=== PATIENT | female | born 1960 | race American Indian/Alaskan Native ===

== ENCOUNTER 2017-08-11 08:47 | Day surgery (SDC) | payer MEDICARE ==
[2017-08-06 10:11] VITALS: BMI 32.3
[2017-08-11 09:35] LABS: POTASSIUM 3.4 mmol/L (3.6-5.2)
[2017-08-11] MEDS ORDERED: Propofol 10 mg/ml Inj (20 ML) ONE ×2 (10:04→11:07)
[2017-08-11] MEDS ORDERED: Midazolam 2 MG/2 ML VIAL ONE (10:05)
[2017-08-11] MEDS ORDERED: ceFAZolin IV 1 gm in Dextrose 1 GM/50 ML BAG IVPB ONE (10:43)
[2017-08-11] MEDS ORDERED: HEPARIN-NS 5,000 UNITS/500 ML 5,000 UNIT/500 ML BAG IV ONE (10:44)
[2017-08-11] MEDS ORDERED: Lidocaine 1% Inj (20ml) ONE (10:44)
[2017-08-11] MEDS ORDERED: Sodium Chloride 0.9% 500 ML IV ONE (10:48)
[2017-08-11] MEDS ORDERED: Morphine 4 MG/ML VIAL ONE (11:05)
[2017-08-11] MEDS ORDERED: Lactated Ringer's 1,000 ML IV ONE ×2 (11:48→12:54)
[2017-08-11] MEDS ORDERED: HYDROmorphone 0.5 mg/0.5 ml ISec IVP PRN (12:32)
--- NOTE | 2017-08-11 12:55 | PCM.SURG1 ---
Surgeon's Initial Post Op Note - Surgeon's Notes Surgeon: Dr. Ruiz Primary Substance Abuse Counselor: Dr. Sheppard PGY-3, Horace S-III Type of Anesthesia: General LMA Pre-Operative Diagnosis: Renal failure requiring dialysis Operative Findings: good radial pulse Post-Operative Diagnosis: Renal failure requiring dialysis Operation Performed: Left brachiobasilic AV Fistula Specimen/Specimens Removed: none Estimated Blood Loss: EBL {In ML}: 50 Blood Products Given: N/A Drains Used: No Drains Post-Op Condition: Good Date of Surgery/Procedure: 08/11/17 Time of Surgery/Procedure: 12:55
[2017-08-11 16:10] VITALS: BP 125/80; PULSE 68; RESP 18; TEMP 98; O2SAT 98
--- NOTE | 2017-08-11 21:52 | OP ---
PROCEDURE DATE: 08/11/2017 PREOPERATIVE DIAGNOSIS: Renal failure. POSTOPERATIVE DIAGNOSIS: Renal failure. PROCEDURE CARRIED OUT: AV fistula, left elbow; brachiocephalic. SURGEON: Dr. Ruiz. MAILING SECTION CLERK: Dr. Sheppard. ANESTHESIOLOGIST: Aranza Ingram CRNA. INDICATION: The patient is a middle aged women, HIV positive with renal insufficiency on dialysis. OPERATIVE FINDINGS: As confirmed on our preoperative mapping, there were no good cephalic resurface seen. We had to do an anastomosis to the basilic vein. This most likely will require mobilization in the future. PROCEDURE: The patient was given general anesthesia, intravenous antibiotics, the area was prepped and draped with Hibiclens. The appropriate time was waited before we draped the patient and then with ultrasound we mapped out the veins that were present. Particularly, the basilic vein noted the small size in location of the cephalic vein. After this had been done, we then carried out anastomosis using loop magnification, heparin, and anticoagulation. This went quite well. At the end of the procedure there was good flow. We did have to make two separate incisions, one to mobilize the basilic vein. After this had been done, we then anastomosed everything satisfactorily. We obtained good hemostasis and closed the wounds. Blood loss of the procedure was 50 mL. Operation carried out is brachial basilic fistula left elbow. Michael Ruiz Jr., MD cc: Carlos Nava MD
== END 2017-08-11 16:14 | disposition home or self-care (01) ==
LOC: C.SDS 08:47
PROVIDERS: ATTEND Surgery Vascular Surgery
DX: N18.9 Chronic kidney disease, unspecified (principal); Z99.2 Dependence on renal dialysis; Z21 Asymptomatic human immunodeficiency virus [HIV] infection status
CPT/HCPCS: 36415; 36819; 80048; J0690; J1170; J1644; J2250; J2270; J2704; J3010; J7040; J7120

== ENCOUNTER 2017-10-15 09:19 | Day surgery (SDC) | payer MEDICARE ==
[2017-10-09 12:39] VITALS: BMI 32.5
[~2017-10-15 09:19] MED LIST: HEPARIN-NS 5,000 UNITS/500 ML 5,000 UNIT/500 ML BAG IV ONE
[2017-10-15] MEDS ORDERED: Propofol 10 mg/ml Inj (20 ML) ONE (11:00)
[2017-10-15] MEDS ORDERED: Midazolam 2 MG/2 ML VIAL ONE (11:00)
[2017-10-15] MEDS ORDERED: Sodium Chloride 0.45% 500 ML IV ONE (11:20)
[2017-10-15] MEDS ORDERED: ceFAZolin IV 2 gm in Dextrose 2 GM/50 ML BAG IVPB ONE (11:46)
[2017-10-15] MEDS ORDERED: Iohexol 240 (50 ml) ONE (13:05)
[2017-10-15] MEDS ORDERED: Sodium Chloride 0.9% 1,000 ML IV ONE (14:03)
[2017-10-15] MEDS ORDERED: Oxycodone/Acetaminophen 5/325 mg Tab PO PRN (14:04)
[2017-10-15] MEDS ORDERED: HYDROmorphone 0.5 mg/0.5 ml ISec IVP PRN (14:07)
--- NOTE | 2017-10-15 14:11 | PCM.SURG1 ---
Surgeon's Initial Post Op Note - Surgeon's Notes Surgeon: Dr. Ruiz Press Manager: Guero PGY1 Type of Anesthesia: General LMA Anesthesia Administered By: Dr. Luciano Pre-Operative Diagnosis: ESRD requiring HD Operative Findings: see operative report Post-Operative Diagnosis: ESRD requiring HD Operation Performed: LUE AVF transposition and fistulogram Specimen/Specimens Removed: N/A Estimated Blood Loss: EBL {In ML}: 20 Blood Products Given: N/A Drains Used: No Drains Post-Op Condition: Good Date of Surgery/Procedure: 10/15/17 Time of Surgery/Procedure: 11:30
[2017-10-15] MEDS ORDERED: Sodium Chloride 0.9% 1,000 ML IV SCH (14:15)
--- NOTE | 2017-10-15 15:24 | RAD ---
PROCEDURE: Intraoperative Fluoroscopy. HISTORY: RENAL FAILURE FINDINGS: Fluoroscopic assistance was provided Please refer to the operative
[2017-10-15 16:45] VITALS: RESP 16; TEMP 97.9; O2SAT 99
[2017-10-15 17:29] VITALS: BP 126/83; PULSE 94
--- NOTE | 2017-10-16 01:56 | OP ---
PROCEDURE DATE: 10/15/2017 PREOPERATIVE DIAGNOSIS: Immature fistula, left arm. POSTOPERATIVE DIAGNOSIS: Basilic vein transposition of fistula, left arm. SURGEON: Michael Ruiz Jr., MD [employer] DIVISION MANAGER: Juventino Jack DO ANESTHESIOLOGIST: Dr. Luciano. INDICATIONS: The patient is a 57-year-old woman with renal insufficiency, requiring dialysis, who had a basilic vein fistula created several months ago which has not matured. OPERATIVE FINDINGS: The vein was between approximately 6 mm in diameter. There was one central area which was slightly stenosed to approximately 5 mm and we attempted hydrostatic dilatation of this area. In addition, a completion angiogram was taken which showed arterial anastomosis because on the preoperative duplex scan it suggested there was turbulence and nani-anastomotic stenosis. There was no sign of this on the completion angiogram. DESCRIPTION OF THE PROCEDURE: The vein was marked with ultrasound. The vein was marked, dissected free from the surrounding tissues. Tributaries and branches were ligated and after this was done, it was brought to the subcutaneous position, elevated directly under the skin. The skin was closed on top of it. Blood loss for the procedure was approximately 100 mL. There were no operative complications. OPERATIONS CARRIED OUT: 1. Revision of arteriovenous fistula,creation of basilic vein transposition of fistula, left arm. 2. Intraoperative arteriogram showing arterial anastomosis. The patient did receive pre-treatment and post-treatment for the remote history of dye reaction. Michael Ruiz Jr., MD cc: MD Kenny Tomlin MD
== END 2017-10-15 17:35 | disposition home or self-care (01) ==
LOC: C.SDS 09:19
PROVIDERS: ATTEND Surgery Vascular Surgery
DX: N18.6 End stage renal disease (principal); Z99.2 Dependence on renal dialysis
CPT/HCPCS: 36819; J0690; J1170; J2250; J2704; J3010; J7030; J7040

== ENCOUNTER 2019-01-24 15:53 | Inpatient (IN) | payer MEDICARE, OTHER ==
[2019-01-24 16:51] LABS: BASO # 0.1 K/uL (0.0-0.2); BASO % 0.5 % (0.0-2.0); EOS # 0.1 K/uL (0.0-0.7); EOS % 0.7 % (0.0-4.0); HEMOGLOBIN 9.7 g/dL (11.0-16.0); LYMPH # 0.3 K/uL (1.0-4.3); LYMPH % 2.8 % (20.0-40.0); MEAN CELL VOLUME 83.5 fL (81.0-99.0); MEAN CORPUSCULAR HEMOGLOBIN 26.9 pg (27.0-31.0); MEAN CORPUSCULAR HGB CONC 32.3 g/dL (33.0-37.0); MEAN PLATELET VOLUME 7.6 fL (7.2-11.7); MONO # 0.7 K/uL (0.0-0.8); MONO % 6.5 % (0.0-10.0); NEUT # 9.6 K/uL (1.8-7.0); NEUT % 89.5 % (50.0-75.0); PLATELET COUNT 240 K/uL (130-400); RBC 3.59 Mil/uL (3.80-5.20); WHITE BLOOD COUNT 10.7 K/uL (4.8-10.8)
[2019-01-24 17:00] LABS: PROTHROMBIN TIME 10.9 SECONDS (9.7-12.2)
[2019-01-24 17:06] LABS: ALB/GLOB RATIO 1.3 (1.0-2.1); ALBUMIN 4.7 g/dL (3.5-5.0); CALCIUM 10.1 mg/dl (8.6-10.4)
--- NOTE | 2019-01-24 17:32 | RAD ---
PROCEDURE: Left Hand Radiographs. HISTORY: pain and swelling to hand worse 5th finger COMPARISON: None. TECHNIQUE: 3 views obtained. FINDINGS: BONES: Normal. No fracture. JOINTS: Normal. No osteoarthritic changes. SOFT TISSUES: Normal. OTHER FINDINGS: None. IMPRESSION: Normal left hand radiographs.
[2019-01-24] MEDS ORDERED: Oxycodone/Acetaminophen 5/325 mg Tab PO STA (17:33)
--- NOTE | 2019-01-24 17:34 | CP.PCM.CON ---
History of Present Illness - History of Present Illness History of Present Illness: Surgery: Dr. Ruiz Reason for consult: malfunctioning left arm AVF HPI: Patient is a 58 y/o female w/ pmhx of HIV and ESRD - to start HD this coming week, presents complaining of left hand swelling x2 days. She also states over the past 2-3 weeks she noticed an absence of the fistula thrill. She was told by her director loss prevention, Dr. Nava, that he plans to start HD next week twice per week. She complains of pain to the hand as well. She denies f/c/n/v. She denies loss of sensation or function in the left hand. She denies any attempt of using the AVF as of yet. PMH: HIV, ESRD, HTN, DDD, CVA w/ Left sided weakness PSH: Left arm AVF, AVF superficialization, cataracts Social: denies ETOH, tobacco or drug use Review of Systems - Constitutional Constitutional: absent: Anorexia, Chills, Fever - EENT Eyes: absent: Blurred Vision, Change in Vision Ears: absent: Dizziness Nose/Mouth/Throat: absent: Facial Pain, Neck Pain - Cardiovascular Cardiovascular: absent: Chest Pain, Edema - Respiratory Respiratory: absent: Cough, Wheezing - Gastrointestinal Gastrointestinal: absent: Abdominal Pain, Nausea - Genitourinary Genitourinary: absent: Hematuria, Pyuria - Musculoskeletal Musculoskeletal: Radiating Pain into Limb (LUE) - Integumentary Integumentary: absent: Bleeding Lesions, Sores - Endocrine Endocrine: absent: Polydipsia, Polyphagia - Hematologic/Lymphatic Hematologic: absent: Easy Bleeding, Easy Bruising Past Patient History - Past Medical History & Family History Past Medical History?: Yes - Past Social History Smoking Status: Never Smoked - CARDIAC Hx Hypertension: Yes Hx Peripheral Edema: Yes (left leg"BETTER NOW THAT I'M ON THE WATER PILL") - PULMONARY Hx Respiratory Disorders: Yes Hx Tuberculosis: Yes (treated 1993) - NEUROLOGICAL Hx Neurological Disorder: Yes HX Cerebrovascular Accident: Yes (2010 left sided weakness) - HEENT Hx HEENT Problems: Yes Hx Cataracts: Yes - RENAL Hx Chronic Kidney Disease: Yes Hx Kidney Stones: Yes - ENDOCRINE/METABOLIC Hx Endocrine Disorders: No - HEMATOLOGICAL/ONCOLOGICAL Hx Anemia: Yes Hx Human Immunodeficiency Virus (HIV): Yes - INTEGUMENTARY Hx Dermatological Problems: No - MUSCULOSKELETAL/RHEUMATOLOGICAL Hx Musculoskeletal Disorders: Yes Hx Degenerative Joint Disease: Yes (spine) - GENITOURINARY/GYNECOLOGICAL Hx Genitourinary Disorders: No - PSYCHIATRIC Hx Psychophysiologic Disorder: No Hx Substance Use: No - SURGICAL HISTORY Hx Surgeries: Yes Hx Arteriovenous Shunt: Yes (LEFT UPPER ARM(08/11/17)) Hx Dilation and Curettage: Yes (thermal ablation) Hx Tubal Ligation: Yes - ANESTHESIA Hx Anesthesia: Yes Hx Anesthesia Reactions: Yes (wakes up coughing/ nausea) Hx Malignant Hyperthermia: No Meds Allergies/Adverse Reactions: Allergies Allergy/AdvReac Type Severity Reaction Status Date / Time FISH Allergy Intermediate RASH Verified 08/06/17 10:10 Iodinated Contrast- Oral and Allergy Intermediate RASH Verified 08/06/17 10:09 IV Dye iodine Allergy Intermediate RASH Verified 08/06/17 10:08 shellfish derived Allergy Intermediate RASH Verified 08/06/17 10:09 Sulfa (Sulfonamide Allergy Intermediate RASH Verified 08/06/17 10:09 Antibiotics) hydrochlorothiazide Allergy RASH Verified 08/11/17 09:47 Physical Exam - Constitutional Appears: Non-toxic, No Acute Distress - Head Exam Head Exam: ATRAUMATIC, NORMOCEPHALIC - Eye Exam Eye Exam: EOMI, Normal appearance - ENT Exam ENT Exam: Mucous Membranes Moist - Respiratory Exam Respiratory Exam: NORMAL BREATHING PATTERN. absent: Respiratory Distress - Cardiovascular Exam Cardiovascular Exam: REGULAR RHYTHM. absent: Tachycardia - Expanded Upper Extremities Exam Left General: normal inspection (left medial surgical scar from AVF, well healed. No bruit or Thrill noted in AVF) Upper Arm exam: swelling, tenderness Vascular exam: radial pulse, normal capillary refill - Neurological Exam Neurological exam: Alert, Oriented x3 Results - Vital Signs Recent Vital Signs: Last Vital Signs Temp 97.7 F 01/24/19 16:00 Pulse 84 01/24/19 16:00 Resp 20 01/24/19 16:00 BP 164/104 H 01/24/19 16:00 Pulse Ox 100 01/24/19 16:00 - Labs Result Diagrams: 01/24/19 16:40 01/24/19 16:40 Labs: Laboratory Results - last 24 hr 01/24/19 01/24/19 01/24/19 16:40 16:40 16:40 WBC 10.7 D RBC 3.59 L Hgb 9.7 L Hct 29.9 L MCV 83.5 MCH 26.9 L MCHC 32.3 L RDW 15.0 H Plt Count 240 MPV 7.6 Neut % (Auto) 89.5 H Lymph % (Auto) 2.8 L Sully % (Auto) 6.5 Eos % (Auto) 0.7 Baso % (Auto) 0.5 Neut # (Auto) 9.6 H Lymph # (Auto) 0.3 L Sully # (Auto) 0.7 Eos # (Auto) 0.1 Baso # (Auto) 0.1 PT 10.9 INR 1.0 APTT 31.0 Sodium 139 Potassium 5.2 Chloride 106 Carbon Dioxide 19 L Anion Gap 19 BUN 57 H Creatinine 5.5 H Est GFR ( Amer) 10 Est GFR (Non-Af Amer) 8 Random Glucose 116 H D Calcium 10.1 Total Bilirubin 0.5 AST 30 ALT 17 Alkaline Phosphatase 113 Total Protein 8.3 Albumin 4.7 Globulin 3.7 Albumin/Globulin Ratio 1.3 Assessment & Plan - Assessment and Plan (Free Text) Assessment: 58 y/o female w/ malfunctioning AVF, left arm with plans to start HD next week Plan: -if admitted with plan for OR tomorrow 01/25 for permacath placement -NPO pmn -after catheter placement will plan for full evaluation of Left Arm AVF -further medical care per primary team -d/w Dr. Joseph Fink PGY4
--- NOTE | 2019-01-24 17:36 | C.PDOC ---
History Of Present Illness 58 year old female with a history of HIV and renal failure with left upper arm AV fistula for the last two years. Patient reports that she stopped feeling the thrill two days ago, and complains of pain and swelling to her left arm, hand, and 5th digit. Patient states that she took Tylenol and iced her left arm without improvement. Patient reports that she is due to start dialysis this week, has never used this fistula. Time Seen by Provider: 01/24/19 16:06 Chief Complaint (Nursing): Finger,Hand,&Wrist History Per: Patient History/Exam Limitations: no limitations Onset/Duration Of Symptoms: Days (2) Current Symptoms Are (Timing): Still Present Quality: "Pain", Other (swelling) Past Medical History Reviewed: Historical Data, Nursing Documentation, Vital Signs Vital Signs: Last Vital Signs Temp 97.7 F 01/24/19 16:00 Pulse 84 01/24/19 16:00 Resp 20 01/24/19 16:00 BP 164/104 H 01/24/19 16:00 Pulse Ox 100 01/24/19 16:00 - Medical History PMH: Anemia, HIV, HTN, Kidney Stones, Peripheral Edema (left leg"BETTER NOW THAT I'M ON THE WATER PILL"), Chronic Kidney Disease Surgical History: Endoscopy - [facility] Procedures ANT NASAL PACK FOR EPIST (09/20/13) CAUTERY TO STOP EPISTAX (09/21/13) PRESSURE DRESSING APPLIC (11/22/13) Family History: States: No Known Family Hx - Social History Hx Tobacco Use: No Hx Alcohol Use: No Hx Substance Use: No - Immunization History Hx Tetanus Toxoid Vaccination: Yes Hx Influenza Vaccination: Yes Hx Pneumococcal Vaccination: No Review Of Systems Constitutional: Negative for: Fever, Chills Cardiovascular: Negative for: Chest Pain Respiratory: Negative for: Cough, Shortness of Breath Gastrointestinal: Negative for: Nausea, Vomiting, Abdominal Pain, Diarrhea Musculoskeletal: Positive for: Arm Pain (left arm), Hand Pain (left hand) Physical Exam - Physical Exam Appears: Non-toxic, No Acute Distress Skin: Normal Color, Warm, Dry Head: Atraumatic, Normacephalic Eye(s): bilateral: Normal Inspection, PERRL, EOMI Neck: Normal, Supple Chest: Symmetrical, No Tenderness Extremity: Tenderness (to left 5th digit), Swelling (all fingers of left hand swollen, including left 5th digit), Other (lymph node in axilla proximal to scar, fistula to medial upper left amr, no thrill) Extremity: Left: Atraumatic Pulses: Left Radial: Normal Neurological/Psych: Oriented x3, Normal Speech, Normal Cognition ED Course And Treatment - Laboratory Results Result Diagrams: 01/24/19 16:40 01/24/19 16:40 Lab Results: PT 10.9 SECONDS (9.7-12.2) 01/24/19 16:40 INR 1.0 01/24/19 16:40 APTT 31.0 SECONDS (21-34) 01/24/19 16:40 Total Bilirubin 0.5 mg/dL (0.2-1.3) 01/24/19 16:40 AST 30 U/L (14-36) 01/24/19 16:40 ALT 17 U/L (9-52) 01/24/19 16:40 Alkaline Phosphatase 113 U/L (38-126) 01/24/19 16:40 Total Protein 8.3 g/dL (6.3-8.3) 01/24/19 16:40 Albumin 4.7 g/dL (3.5-5.0) 01/24/19 16:40 Globulin 3.7 gm/dL (2.2-3.9) 01/24/19 16:40 Albumin/Globulin Ratio 1.3 (1.0-2.1) 01/24/19 16:40 O2 Sat by Pulse Oximetry: 100 - Other Rad XR Left Hand X-Ray: Viewed By Me, Read By Radiologist Interpretation: IMPRESSION: Normal left hand radiographs. Medical Decision Making Medical Decision Making: Discussed with manager surgical, will come and evaluate patient in ED. message left with Dr Bone's service. [id number] Bone, requests admission to Dr Poole. message left for Dr Poole. Plan: CMP Hematology Norvasc 10mg PO XR Left Hand surgery consult [address] Gillespie, will admit to his service. Disposition Discussed With : Yeimi Poole Doctor Will See Patient In The: Hospital - Disposition Disposition: HOSPITALIZED Disposition Time: 18:42 Condition: GOOD - Clinical Impression Clinical Impression: Complication of vascular access for dialysis, Hypertension, Renal failure - PA / MOTORCOACH DRIVER / Resident Statement MD/DO has reviewed & agrees with the documentation as recorded. - Scribe Statement The provider has reviewed the documentation as recorded by the Scribe (Elmer Dunn) All medical record entries made by the Scribe were at my direction and personally dictated by me. I have reviewed the chart and agree that the record accurately reflects my personal performance of the history, physical exam, medical decision making, and the department course for this patient. I have also personally directed, reviewed, and agree with the discharge instructions and disposition.
[2019-01-24] MEDS ORDERED: Oxycodone/Acetaminophen 5/325 mg Tab ONE (17:43)
[2019-01-24 17:54] LABS: EOSINOPHIL 1 % (0-4); LYMPHOCYTE 2 % (20-40); MONOCYTE 5 % (0-10); NEUTROPHIL 92 % (50-75); PLATELET ESTIMATE NORMAL (NORMAL); TOTAL CELLS COUNTED 100
[2019-01-24] MEDS: Tramadol 25 mg PO PRN (22:53)
[2019-01-25 07:38] LABS: BASO % 0.2 % (0.0-2.0); EOS % 0.4 % (0.0-4.0); HEMOGLOBIN 9.2 g/dL (11.0-16.0); LYMPH # 0.3 K/uL (1.0-4.3); LYMPH % 3.2 % (20.0-40.0); MEAN CELL VOLUME 83.6 fL (81.0-99.0); MEAN CORPUSCULAR HEMOGLOBIN 27.5 pg (27.0-31.0); MEAN CORPUSCULAR HGB CONC 32.9 g/dL (33.0-37.0); MEAN PLATELET VOLUME 7.6 fL (7.2-11.7); MONO # 0.7 K/uL (0.0-0.8); MONO % 6.3 % (0.0-10.0); NEUT # 9.7 K/uL (1.8-7.0); NEUT % 89.9 % (50.0-75.0); PLATELET COUNT 239 K/uL (130-400); RBC 3.33 Mil/uL (3.80-5.20); RED CELL DISTRIBUTION WIDTH 15.3 % (11.5-14.5); WHITE BLOOD COUNT 10.8 K/uL (4.8-10.8)
[2019-01-25 07:44] LABS: PROTHROMBIN TIME 11.2 SECONDS (9.7-12.2)
[2019-01-25 07:55] LABS: ALB/GLOB RATIO 1.4 (1.0-2.1); ALBUMIN 4.4 g/dL (3.5-5.0); CALCIUM 10.7 mg/dl (8.6-10.4)
[2019-01-25] MEDS: Tramadol 25 mg PO PRN (08:58)
[2019-01-25 09:08] LABS: ANISOCYTOSIS SLIGHT; BASOPHIL 1 % (0-2); HYPOCHROMIC SLIGHT; LYMPHOCYTE 2 % (20-40); MONOCYTE 7 % (0-10); NEUTROPHIL 90 % (50-75); PLATELET ESTIMATE NORMAL (NORMAL); POIKILOCYTOSIS SLIGHT; TOTAL CELLS COUNTED 100
[2019-01-25] MEDS ORDERED: ceFAZolin 1 gm in NS 1 GM/100 ML BAG IVPB ONE (12:07)
[2019-01-25] MEDS ORDERED: Lidocaine Hydrochloride 10 ML INJ ONE (12:07)
[2019-01-25] MEDS ORDERED: HEPARIN-NS 5,000 UNITS/500 ML 5,000 UNIT/500 ML BAG IV ONE (12:07)
[2019-01-25] MEDS ORDERED: HYDROmorphone 0.5 mg/0.5 ml ISec IVP PRN (12:38)
[2019-01-25] MEDS ORDERED: Midazolam 2 MG/2 ML VIAL ONE ×2 (12:51→13:06)
--- NOTE | 2019-01-25 13:00 | CP.PCM.CON ---
History of Present Illness - History of Present Illness History of Present Illness: HPI: Patient is a 58 y/o female w/ pmhx of HIV, HTN, secondary HPT and CKD 5 - she was to start HD this coming week, presents complaining of left hand swelling x2 days. She also states over the past 2-3 days she noticed an absence of the fistula thrill. She was told that she will to start HD dur to GFR around 9-10. She complains of pain to the hand as well. She denies f/c/n/v. She denies loss of sensation or function in the left hand. She denies any attempt of using the AVF as of yet. She has had fair appetite, no nausea, vomiting, fevers, chills, CPs, dyspnea, HAs PMH: HIV, ESRD, HTN, DDD, CVA w/ Left sided weakness PSH: Left arm AVF, AVF superficialization, cataracts Social: denies ETOH, tobacco or drug use FH- no CKD Review of Systems - Constitutional Constitutional: Fatigue, Weakness - EENT Eyes: absent: As Per HPI, Blind Spots, Blurred Vision, Change in Vision, Decreased Night Vision, Diplopia, Discharge, Dry Eye, Exophthalmos, Floaters, Irritation, Itchy Eyes, Loss of Peripheral Vision, Pain, Photophobia, Requires Corrective Lenses, Sees Flashes, Spots in Vision, Tunnel Vision, Other Visual Disturbances, Loss of Vision, Other Ears: absent: As Per HPI, Decreased Hearing, Ear Discharge, Ear Pain, Tinnitus, Abnormal Hearing, Disequilibrium, Dizziness, Other Nose/Mouth/Throat: absent: As Per HPI, Epistaxis, Nasal Congestion, Nasal Discharge, Nasal Obstruction, Nasal Trauma, Nose Pain, Post Nasal Drip, Sinus Pain, Sinus Pressure, Bleeding Gums, Change in Voice, Dental Pain, Dry Mouth, Dysphagia, Halitosis, Hoarsness, Lip Swelling, Mouth Lesions, Mouth Pain, Odynophagia, Sore Throat, Throat Swelling, Tongue Swelling, Facial Pain, Neck Pain, Neck Mass, Other - Cardiovascular Cardiovascular: absent: As Per HPI, Acrocyanosis, Chest Pain, Chest Pain at Rest, Chest Pain with Activity, Claudication, Diaphoresis, Dyspnea, Dyspnea on Exertion, Edema, Irregular Heart Rhythm, Pain Radiating to Arm/Neck/Jaw, Leg Ed sascha, Leg Ulcers, Lightheadedness, Orthopnea, Palpitations, Paroxysmal Nocturnal Dyspnea, Pedal Edema, Radiating Pain, Rapid Heart Rate, Slow Heart Rate, Syncope, Other - Respiratory Respiratory: absent: As Per HPI, Cough, Dyspnea, Hemoptysis, Dyspnea on Exertio n, Wheezing, Snoring, Stridor, Pain on Inspiration, Chest Congestion, Excessive Mucous Production, Change in Mucous Color, Pain with Coughing, Other - Gastrointestinal Gastrointestinal: absent: As Per HPI, Abdominal Pain, Belching, Bloating, Change in Bowel Habits, Change in Stool Character, Coffee Ground Emesis, Constipation, Cramping, Diarrhea, Dyspepsia, Dysphagia, Early Satiety, Excessive Flatus, Fecal Incontinence, Heartburn, Hematemesis, Hematochezia, Loose Stools, Melena, Nausea, Odynophagia, Temesmus, Vomiting, Other - Genitourinary Genitourinary: As Per HPI - Musculoskeletal Musculoskeletal: Muscle Weakness, Myalgias, Numbness - Integumentary Integumentary: Skin Pain, Swelling - Neurological Neurological: Weakness Past Patient History - Past Medical History & Family History Past Medical History?: Yes Past Family History: Reviewed and not pertinent - Past Social History Smoking Status: Never Smoked Chewing Tobacco Use: No Cigar Use: No Alcohol: None Drugs: Denies Home Situation {Lives}: With Family - CARDIAC Hx Hypertension: Yes Hx Peripheral Edema: Yes (left leg"BETTER NOW THAT I'M ON THE WATER PILL") - PULMONARY Hx Respiratory Disorders: Yes Hx Tuberculosis: Yes (treated 1993) - NEUROLOGICAL Hx Neurological Disorder: Yes HX Cerebrovascular Accident: Yes (2010 left sided weakness) - HEENT Hx HEENT Problems: Yes Hx Cataracts: Yes - RENAL Hx Chronic Kidney Disease: Yes Hx Kidney Stones: Yes - ENDOCRINE/METABOLIC Hx Endocrine Disorders: No - HEMATOLOGICAL/ONCOLOGICAL Hx Anemia: Yes Hx Human Immunodeficiency Virus (HIV): Yes - INTEGUMENTARY Hx Dermatological Problems: No - MUSCULOSKELETAL/RHEUMATOLOGICAL Hx Musculoskeletal Disorders: Yes Hx Degenerative Joint Disease: Yes (spine) - GENITOURINARY/GYNECOLOGICAL Hx Genitourinary Disorders: No - PSYCHIATRIC Hx Substance Use: No - SURGICAL HISTORY Hx Surgeries: Yes Hx Arteriovenous Shunt: Yes (LEFT UPPER ARM(08/11/17)) Hx Dilation and Curettage: Yes (thermal ablation) Hx Tubal Ligation: Yes - ANESTHESIA Hx Anesthesia: Yes Hx Anesthesia Reactions: Yes (wakes up coughing/ nausea) Hx Malignant Hyperthermia: No Meds Allergies/Adverse Reactions: Allergies Allergy/AdvReac Type Severity Reaction Status Date / Time FISH Allergy Intermediate RASH Verified 08/06/17 10:10 Iodinated Contrast- Oral and Allergy Intermediate RASH Verified 08/06/17 10:09 IV Dye iodine Allergy Intermediate RASH Verified 08/06/17 10:08 shellfish derived Allergy Intermediate RASH Verified 08/06/17 10:09 Sulfa (Sulfonamide Allergy Intermediate RASH Verified 08/06/17 10:09 Antibiotics) hydrochlorothiazide Allergy RASH Verified 08/11/17 09:47 - Medications Medications: Current Medications Amlodipine Besylate (Norvasc) 10 mg PO DAILY [facility] Last Admin: 01/25/19 08:59 Dose: 10 mg Diphenhydramine HCl (Benadryl) 25 mg PO Q6 PRN PRN Reason: Itching / Pruritus Furosemide (Lasix) 40 mg PO DAILY [facility] Last Admin: 01/25/19 08:59 Dose: 40 mg Hydromorphone HCl (Dilaudid) 0.5 mg IVP Q5M PRN PRN Reason: Pain, moderate (4-7) Stop: 01/25/19 14:38 Labetalol HCl (Trandate) 100 mg PO DAILY [facility] Last Admin: 01/25/19 09:00 Dose: 100 mg Ondansetron HCl (Zofran Inj) 4 mg IVP ONCE PRN PRN Reason: Nausea/Vomiting Stop: 01/25/19 14:38 Pneumococcal Polyvalent Vaccine (Pneumovax 23 Vaccine) 0.5 ml IM .ONCE ONE Stop: 01/26/19 10:01 Sennosides (Senokot Tab) 8.6 mg PO BID PRN PRN Reason: Constipation Sodium Bicarbonate (Sodium Bicarbonate Tab) 650 mg PO BID [facility] Last Admin: 01/25/19 08:59 Dose: 650 mg Tramadol HCl (Ultram) 25 mg PO Q8 PRN PRN Reason: pain Last Admin: 01/25/19 08:58 Dose: 25 mg Physical Exam - Constitutional Appears: No Acute Distress - Head Exam Head Exam: ATRAUMATIC, NORMAL INSPECTION - Eye Exam Eye Exam: EOMI, Normal appearance - Neck Exam Neck exam: Positive for: Normal Inspection. Negative for: Tenderness - Respiratory Exam Respiratory Exam: Clear to Auscultation Bilateral, NORMAL BREATHING PATTERN - Cardiovascular Exam Cardiovascular Exam: REGULAR RHYTHM, +S1 - GI/Abdominal Exam GI & Abdominal Exam: Soft. absent: Tenderness - Extremities Exam Extremities exam: Positive for: normal inspection. Negative for: tenderness - Neurological Exam Neurological exam: Alert, CN II-XII Intact - Skin Skin Exam: Dry, Warm Results - Vital Signs Recent Vital Signs: Last Vital Signs Temp 98.3 F 01/25/19 07:00 Pulse 88 01/25/19 07:00 Resp 20 01/25/19 07:00 BP 177/95 H 01/25/19 08:59 Pulse Ox 98 01/25/19 07:00 - Labs Result Diagrams: 01/25/19 07:21 01/25/19 07:21 Labs: Laboratory Results - last 24 hr 01/24/19 01/24/19 01/24/19 16:40 16:40 16:40 WBC 10.7 D RBC 3.59 L Hgb 9.7 L Hct 29.9 L MCV 83.5 MCH 26.9 L MCHC 32.3 L RDW 15.0 H Plt Count 240 MPV 7.6 Neut % (Auto) 89.5 H Lymph % (Auto) 2.8 L [place] % (Auto) 6.5 Eos % (Auto) 0.7 Baso % (Auto) 0.5 Neut # (Auto) 9.6 H Lymph # (Auto) 0.3 L [place] # (Auto) 0.7 Eos # (Auto) 0.1 Baso # (Auto) 0.1 Neutrophils % (Manual) 92 H Lymphocytes % (Manual) 2 L Monocytes % (Manual) 5 Eosinophils % (Manual) 1 Basophils % (Manual) Platelet Estimate Normal Hypochromasia (manual) Poikilocytosis (manual Anisocytosis (manual) PT 10.9 INR 1.0 APTT 31.0 Sodium 139 Potassium 5.2 Chloride 106 Carbon Dioxide 19 L Anion Gap 19 BUN 57 H Creatinine 5.5 H Est GFR ( Amer) 10 Est GFR (Non-Af Amer) 8 Random Glucose 116 H D Calcium 10.1 Phosphorus Magnesium Total Bilirubin 0.5 AST 30 ALT 17 Alkaline Phosphatase 113 Total Protein 8.3 Albumin 4.7 Globulin 3.7 Albumin/Globulin Ratio 1.3 01/25/19 01/25/19 01/25/19 07:21 07:21 07:21 WBC 10.8 RBC 3.33 L Hgb 9.2 L Hct 27.9 L MCV 83.6 MCH 27.5 MCHC 32.9 L RDW 15.3 H Plt Count 239 MPV 7.6 Neut % (Auto) 89.9 H Lymph % (Auto) 3.2 L [place] % (Auto) 6.3 Eos % (Auto) 0.4 Baso % (Auto) 0.2 Neut # (Auto) 9.7 H Lymph # (Auto) 0.3 L [place] # (Auto) 0.7 Eos # (Auto) 0.0 Baso # (Auto) 0.0 Neutrophils % (Manual) 90 H Lymphocytes % (Manual) 2 L Monocytes % (Manual) 7 Eosinophils % (Manual) Basophils % (Manual) 1 Platelet Estimate Normal Hypochromasia (manual) Slight Poikilocytosis (manual Slight Anisocytosis (manual) Slight PT 11.2 INR 1.0 APTT 34.0 Sodium 141 Potassium 4.2 Chloride 107 Carbon Dioxide 22 Anion Gap 16 BUN 56 H Creatinine 6.1 H Est GFR ( Amer) 9 Est GFR (Non-Af Amer) 7 Random Glucose 113 H Calcium 10.7 H Phosphorus 4.8 H Magnesium 2.4 H Total Bilirubin 0.4 AST 26 ALT 21 Alkaline Phosphatase 118 Total Protein 7.4 Albumin 4.4 Globulin 3.0 Albumin/Globulin Ratio 1.4 Assessment & Plan (1) Arteriovenous fistula thrombosis Status: Acute (2) HIV (human immunodeficiency virus infection) Status: Acute (3) Chronic kidney disease, stage V Status: Acute (4) HIV-associated nephropathy Status: Acute (5) Complication of vascular access for dialysis Status: Acute (6) Hypertensive chronic kidney disease with stage 5 chronic kidney disease or end stage renal disease Status: Acute (7) Hypercalcemia Status: Acute - Assessment and Plan (Free Text) Plan: permcath placement will try to schedule first dialysis; discuss with patient and post surgery same HIV meds stop calcitriol as ca elevated will need dialysis placement
[2019-01-25] MEDS ORDERED: Propofol 10 mg/ml Inj (20 ML) ONE (13:07)
--- NOTE | 2019-01-25 13:44 | PCM.SURG1 ---
Surgeon's Initial Post Op Note - Surgeon's Notes Surgeon: Dr. Ruiz Shoulder Pad Molder: PGY2 Type of Anesthesia: IV Sedation Pre-Operative Diagnosis: 1. End Stage Renal Disease. 2. Left 5th digit Paronychia Operative Findings: Permacath RIJ in position using Fluoroscopy. Initial needle insertion under US guidance. Left hand purulent drainage. For details see op note Post-Operative Diagnosis: As Above Operation Performed: 1. Right IJ permacath Placement. 2. Left Hand 5th digit I&D of Paronychia Specimen/Specimens Removed: none Estimated Blood Loss: EBL {In ML}: 20 Drains Used: No Drains Post-Op Condition: Good Date of Surgery/Procedure: 01/25/19 Time of Surgery/Procedure: 13:44
--- NOTE | 2019-01-25 14:56 | RAD ---
Date of service: 01/25/2019 PROCEDURE: Intraoperative Fluoroscopy. HISTORY: RENAL FAILURE FINDINGS: Fluoroscopic assistance was provided for right-sided dialysis catheter placement. Please refer to the operative report from RICH Rivera.
--- NOTE | 2019-01-25 14:57 | RAD ---
Chest x-ray single frontal view HISTORY: PermCath insertion. Comparison: 08/06/2017 Findings: Right-sided PermCath with tip extending into the right atrium. No evidence of postprocedure pneumothorax. Mild venous congestion. Linear atelectasis in the left mid lung zone. Diffuse increased interstitial lung markings. Tortuous ectatic aorta. Mild cardiomegaly. Degenerative changes in the spine. Impression: No evidence of postprocedure pneumothorax.
[2019-01-25] MEDS ORDERED: DAPTOmycin 500 MG in Sodium Chloride 0.9% 100 ML IV STA (16:06)
[2019-01-25] MEDS ORDERED: Cefepime IV 1 gm in Dextrose 1 GM/50 ML BAG IVPB ONE (16:09)
--- NOTE | 2019-01-25 16:15 | CP.PCM.CON ---
History of Present Illness - History of Present Illness History of Present Illness: INFECTIOUS DISEASE CONSULTATION FRED ABAD MD, FACP 01/25/2019 CHART REVIEWED PT EXAMINED CASE DISCUSSED Patient is a 58 y/o female w/ pmhx of HIV, HTN, secondary HPT and CKD 5 - she was to start HD this coming week, presents complaining of left hand swelling x2 days. She also states over the past 2-3 days she noticed an absence of the fistula thrill. She was told that she will to start HD dur to GFR around 9-10. She complains of pain to the hand as well. She denies f/c/n/v. She denies loss of sensation or function in the left hand. She denies any attempt of using the AVF as of yet. She has had fair appetite, no nausea, vomiting, fevers, chills, CPs, dyspnea, HAs QUESTION OF LEFT PINKY IRRITATION VS INFECTION-NOTED ON EXAM POST OP PMH: HIV, ESRD, HTN, DDD, CVA w/ Left sided weakness, OLD TB TREATED SUCESSFULLY PSH: Left arm AVF, AVF superficialization, cataracts Social: denies ETOH, tobacco or drug use FH- no CKD Review of Systems - Constitutional Constitutional: Fatigue, Weakness - EENT Eyes: absent: As Per HPI, Blind Spots, Blurred Vision, Change in Vision, Decreased Night Vision, Diplopia, Discharge, Dry Eye, Exophthalmos, Floaters, Irritation, Itchy Eyes, Loss of Peripheral Vision, Pain, Photophobia, Requires Corrective Lenses, Sees Flashes, Spots in Vision, Tunnel Vision, Other Visual Disturbances, Loss of Vision, Other Ears: absent: As Per HPI, Decreased Hearing, Ear Discharge, Ear Pain, Tinnitus, Abnormal Hearing, Disequilibrium, Dizziness, Other Nose/Mouth/Throat: absent: As Per HPI, Epistaxis, Nasal Congestion, Nasal Disc harge, Nasal Obstruction, Nasal Trauma, Nose Pain, Post Nasal Drip, Sinus Pain, Sinus Pressure, Bleeding Gums, Change in Voice, Dental Pain, Dry Mouth, Dysphagia, Halitosis, Hoarsness, Lip Swelling, Mouth Lesions, Mouth Pain, Odynophagia, Sore Throat, Throat Swelling, Tongue Swelling, Facial Pain, Neck Pain, Neck Mass, Other - Cardiovascular Cardiovascular: absent: As Per HPI, Acrocyanosis, Chest Pain, Chest Pain at Rest, Chest Pain with Activity, Claudication, Diaphoresis, Dyspnea, Dyspnea on Exertion, Edema, Irregular Heart Rhythm, Pain Radiating to Arm/Neck/Jaw, Leg Edema, Leg Ulcers, Lightheadedness, Orthopnea, Palpitations, Paroxysmal Nocturnal Dyspnea, Pedal Edema, Radiating Pain, Rapid Heart Rate, Slow Heart Rate, Syncope, Other - Respiratory Respiratory: absent: As Per HPI, Cough, Dyspnea, Hemoptysis, Dyspnea on Exertion, Wheezing, Snoring, Stridor, Pain on Inspiration, Chest Congestion, Excessive Mucous Production, Change in Mucous Color, Pain with Coughing, Other - Gastrointestinal Gastrointestinal: absent: As Per HPI, Abdominal Pain, Belching, Bloating, Change in Bowel Habits, Change in Stool Character, Coffee Ground Emesis, Constipation, Cramping, Diarrhea, Dyspepsia, Dysphagia, Early Satiety, Excessive Flatus, Fecal Incontinence, Heartburn, Hematemesis, Hematochezia, Loose Stools, Melena, Nausea, Odynophagia, Temesmus, Vomiting, Other - Genitourinary Genitourinary: As Per HPI - Musculoskeletal Musculoskeletal: Muscle Weakness, Myalgias, Numbness - Integumentary Integumentary: Skin Pain, Swelling - Neurological Neurological: Weakness Past Patient History - Past Medical History & Family History Past Medical History?: Yes Past Family History: Reviewed and not pertinent - Past Social History Smoking Status: Never Smoked Chewing Tobacco Use: No Cigar Use: No Alcohol: None Drugs: Denies Home Situation {Lives}: With Family - CARDIAC Hx Hypertension: Yes Hx Peripheral Edema: Yes (left leg"BETTER NOW THAT I'M ON THE WATER PILL") - PULMONARY Hx Respiratory Disorders: Yes Hx Tuberculosis: Yes (treated 1993) - NEUROLOGICAL Hx Neurological Disorder: Yes HX Cerebrovascular Accident: Yes (2010 left sided weakness) - HEENT Hx HEENT Problems: Yes Hx Cataracts: Yes - RENAL Hx Chronic Kidney Disease: Yes Hx Kidney Stones: Yes - ENDOCRINE/METABOLIC Hx Endocrine Disorders: No - HEMATOLOGICAL/ONCOLOGICAL Hx Anemia: Yes Hx Human Immunodeficiency Virus (HIV): Yes - INTEGUMENTARY Hx Dermatological Problems: No - MUSCULOSKELETAL/RHEUMATOLOGICAL Hx Musculoskeletal Disorders: Yes Hx Degenerative Joint Disease: Yes (spine) - GENITOURINARY/GYNECOLOGICAL Hx Genitourinary Disorders: No - PSYCHIATRIC Hx Substance Use: No - SURGICAL HISTORY Hx Surgeries: Yes Hx Arteriovenous Shunt: Yes (LEFT UPPER ARM(08/11/17)) Hx Dilation and Curettage: Yes (thermal ablation) Hx Tubal Ligation: Yes - ANESTHESIA Hx Anesthesia: Yes Hx Anesthesia Reactions: Yes (wakes up coughing/ nausea) Hx Malignant Hyperthermia: No Meds Allergies/Adverse Reactions: Allergies Allergy/AdvReac Type Severity Reaction Status Date / Time FISH Allergy Intermediate RASH Verified 08/06/17 10:10 Iodinated Contrast- Oral and Allergy Intermediate RASH Verified 08/06/17 10:09 IV Dye iodine Allergy Intermediate RASH Verified 08/06/17 10:08 shellfish derived Allergy Intermediate RASH Verified 08/06/17 10:09 Sulfa (Sulfonamide Allergy Intermediate RASH Verified 08/06/17 10:09 Antibiotics) hydrochlorothiazide Allergy RASH Verified 08/11/17 09:47 - Medications Medications: Current Medications Amlodipine Besylate (Norvasc) 10 mg PO DAILY [facility] Last Admin: 01/25/19 08:59 Dose: 10 mg Diphenhydramine HCl (Benadryl) 25 mg PO Q6 PRN PRN Reason: Itching / Pruritus Furosemide (Lasix) 40 mg PO DAILY [facility] Last Admin: 01/25/19 08:59 Dose: 40 mg Hydromorphone HCl (Dilaudid) 0.5 mg IVP Q5M PRN PRN Reason: Pain, moderate (4-7) Stop: 01/25/19 14:38 Labetalol HCl (Trandate) 100 mg PO DAILY [facility] Last Admin: 01/25/19 09:00 Dose: 100 mg Ondansetron HCl (Zofran Inj) 4 mg IVP ONCE PRN PRN Reason: Nausea/Vomiting Stop: 01/25/19 14:38 Pneumococcal Polyvalent Vaccine (Pneumovax 23 Vaccine) 0.5 ml IM .ONCE ONE Stop: 01/26/19 10:01 Sennosides (Senokot Tab) 8.6 mg PO BID PRN PRN Reason: Constipation Sodium Bicarbonate (Sodium Bicarbonate Tab) 650 mg PO BID [facility] Last Admin: 01/25/19 08:59 Dose: 650 mg Tramadol HCl (Ultram) 25 mg PO Q8 PRN PRN Reason: pain Last Admin: 01/25/19 08:58 Dose: 25 mg Physical Exam - Constitutional Appears: No Acute Distress - Head Exam Head Exam: ATRAUMATIC, NORMAL INSPECTION - Eye Exam Eye Exam: EOMI, Normal appearance - Neck Exam Neck exam: Positive for: Normal Inspection. Negative for: Tenderness - Respiratory Exam Respiratory Exam: Clear to Auscultation Bilateral, NORMAL BREATHING PATTERN - Cardiovascular Exam Cardiovascular Exam: REGULAR RHYTHM, +S1 - GI/Abdominal Exam GI & Abdominal Exam: Soft. absent: Tenderness - Extremities Exam Extremities exam: Positive for: normal inspection. Negative for: tenderness - Neurological Exam Neurological exam: Alert, CN II-XII Intact - Skin Skin Exam: Dry, Warm Results - Vital Signs Recent Vital Signs: Last Vital Signs Temp 98.3 F 01/25/19 07:00 Pulse 88 01/25/19 07:00 Resp 20 01/25/19 07:00 BP 177/95 H 01/25/19 08:59 Pulse Ox 98 01/25/19 07:00 - Labs Result Diagrams: 01/25/19 07:21 01/25/19 07:21 Labs: Laboratory Results - last 24 hr 01/24/19 01/24/19 01/24/19 16:40 16:40 16:40 WBC 10.7 D RBC 3.59 L Hgb 9.7 L Hct 29.9 L MCV 83.5 MCH 26.9 L MCHC 32.3 L RDW 15.0 H Plt Count 240 MPV 7.6 Neut % (Auto) 89.5 H Lymph % (Auto) 2.8 L Crisp % (Auto) 6.5 Eos % (Auto) 0.7 Baso % (Auto) 0.5 Neut # (Auto) 9.6 H Lymph # (Auto) 0.3 L Crisp # (Auto) 0.7 Eos # (Auto) 0.1 Baso # (Auto) 0.1 Neutrophils % (Manual) 92 H Lymphocytes % (Manual) 2 L Monocytes % (Manual) 5 Eosinophils % (Manual) 1 Basophils % (Manual) Platelet Estimate Normal Hypochromasia (manual) Poikilocytosis (manual Anisocytosis (manual) PT 10.9 INR 1.0 APTT 31.0 Sodium 139 Potassium 5.2 Chloride 106 Carbon Dioxide 19 L Anion Gap 19 BUN 57 H Creatinine 5.5 H Est GFR ( Amer) 10 Est GFR (Non-Af Amer) 8 Random Glucose 116 H D Calcium 10.1 Phosphorus Magnesium Total Bilirubin 0.5 AST 30 ALT 17 Alkaline Phosphatase 113 Total Protein 8.3 Albumin 4.7 Globulin 3.7 Albumin/Globulin Ratio 1.3 01/25/19 01/25/19 01/25/19 07:21 07:21 07:21 WBC 10.8 RBC 3.33 L Hgb 9.2 L Hct 27.9 L MCV 83.6 MCH 27.5 MCHC 32.9 L RDW 15.3 H Plt Count 239 MPV 7.6 Neut % (Auto) 89.9 H Lymph % (Auto) 3.2 L Crisp % (Auto) 6.3 Eos % (Auto) 0.4 Baso % (Auto) 0.2 Neut # (Auto) 9.7 H Lymph # (Auto) 0.3 L Crisp # (Auto) 0.7 Eos # (Auto) 0.0 Baso # (Auto) 0.0 Neutrophils % (Manual) 90 H Lymphocytes % (Manual) 2 L Monocytes % (Manual) 7 Eosinophils % (Manual) Basophils % (Manual) 1 Platelet Estimate Normal Hypochromasia (manual) Slight Poikilocytosis (manual Slight Anisocytosis (manual) Slight PT 11.2 INR 1.0 APTT 34.0 Sodium 141 Potassium 4.2 Chloride 107 Carbon Dioxide 22 Anion Gap 16 BUN 56 H Creatinine 6.1 H Est GFR ( Amer) 9 Est GFR (Non-Af Amer) 7 Random Glucose 113 H Calcium 10.7 H Phosphorus 4.8 H Magnesium 2.4 H Total Bilirubin 0.4 AST 26 ALT 21 Alkaline Phosphatase 118 Total Protein 7.4 Albumin 4.4 Globulin 3.0 Albumin/Globulin Ratio 1.4 Assessment & Plan (1) Arteriovenous fistula thrombosis Status: Acute (2) HIV (human immunodeficiency virus infection) Status: Acute/CHRONIC (3) Chronic kidney disease, stage V Status: Acute (4) HIV-associated nephropathy Status: Acute (5) Complication of vascular access for dialysis Status: Acute (6) Hypertensive chronic kidney disease with stage 5 chronic kidney disease or end stage renal disease Status: Acute (7) Hypercalcemia Status: Acute - Assessment and Plan (Free Text) Plan: permcath placement will try to schedule first dialysis; discuss with patient and post surgery same HIV meds/ START CUBICIN ABD CEFEPIME PENDING C/S RESULTS. stop calcitriol as ca elevated will need dialysis placement Past Patient History - Past Medical History & Family History Past Medical History?: Yes Past Family History: Reviewed and not pertinent - Past Social History Smoking Status: Never Smoked Chewing Tobacco Use: No Cigar Use: No Alcohol: None Drugs: Denies Home Situation {Lives}: With Family - CARDIAC Hx Hypertension: Yes Hx Peripheral Edema: Yes (left leg"BETTER NOW THAT I'M ON THE WATER PILL") - PULMONARY Hx Respiratory Disorders: Yes Hx Tuberculosis: Yes (treated 1993) - NEUROLOGICAL Hx Neurological Disorder: Yes HX Cerebrovascular Accident: Yes (2010 left sided weakness) - HEENT Hx HEENT Problems: Yes Hx Cataracts: Yes - RENAL Hx Chronic Kidney Disease: Yes Hx Kidney Stones: Yes - ENDOCRINE/METABOLIC Hx Endocrine Disorders: No - HEMATOLOGICAL/ONCOLOGICAL Hx Anemia: Yes Hx Human Immunodeficiency Virus (HIV): Yes - INTEGUMENTARY Hx Dermatological Problems: No - MUSCULOSKELETAL/RHEUMATOLOGICAL Hx Musculoskeletal Disorders: Yes Hx Degenerative Joint Disease: Yes (spine) - GENITOURINARY/GYNECOLOGICAL Hx Genitourinary Disorders: No - PSYCHIATRIC Hx Substance Use: No - SURGICAL HISTORY Hx Surgeries: Yes Hx Arteriovenous Shunt: Yes (LEFT UPPER ARM(08/11/17)) Hx Dilation and Curettage: Yes (thermal ablation) Hx Tubal Ligation: Yes - ANESTHESIA Hx Anesthesia: Yes Hx Anesthesia Reactions: Yes (wakes up coughing/ nausea) Hx Malignant Hyperthermia: No Meds Allergies/Adverse Reactions: Allergies Allergy/AdvReac Type Severity Reaction Status Date / Time FISH Allergy Intermediate RASH Verified 08/06/17 10:10 Iodinated Contrast- Oral and Allergy Intermediate RASH Verified 08/06/17 10:09 IV Dye iodine Allergy Intermediate RASH Verified 08/06/17 10:08 shellfish derived Allergy Intermediate RASH Verified 08/06/17 10:09 Sulfa (Sulfonamide Allergy Intermediate RASH Verified 08/06/17 10:09 Antibiotics) hydrochlorothiazide Allergy RASH Verified 08/11/17 09:47 - Medications Medications: Current Medications Amlodipine Besylate (Norvasc) 10 mg PO DAILY [facility] Last Admin: 01/25/19 08:59 Dose: 10 mg Diphenhydramine HCl (Benadryl) 25 mg PO Q6 PRN PRN Reason: Itching / Pruritus Furosemide (Lasix) 40 mg PO DAILY [facility] Last Admin: 01/25/19 08:59 Dose: 40 mg Daptomycin 500 mg/ Sodium (Chloride) 100 mls @ 100 mls/hr IV STAT STA; Protocol Stop: 01/25/19 17:05 Cefepime HCl 1 gm/ Sodium (Chloride) 50 mls @ 100 mls/hr IVPB ONCE ONE; Protocol Stop: 01/25/19 16:38 Labetalol HCl (Trandate) 100 mg PO DAILY [facility] Last Admin: 01/25/19 09:00 Dose: 100 mg Pneumococcal Polyvalent Vaccine (Pneumovax 23 Vaccine) 0.5 ml IM .ONCE ONE Stop: 01/26/19 10:01 Sennosides (Senokot Tab) 8.6 mg PO BID PRN PRN Reason: Constipation Sodium Bicarbonate (Sodium Bicarbonate Tab) 650 mg PO BID [facility] Last Admin: 01/25/19 08:59 Dose: 650 mg Tramadol HCl (Ultram) 25 mg PO Q8 PRN PRN Reason: pain Last Admin: 01/25/19 08:58 Dose: 25 mg Results - Vital Signs Recent Vital Signs: Last Vital Signs Temp 98.6 F 01/25/19 13:38 Pulse 68 01/25/19 15:00 Resp 13 01/25/19 15:00 BP 136/88 01/25/19 15:00 Pulse Ox 95 01/25/19 15:00 - Labs Result Diagrams: 01/25/19 07:21 01/25/19 07:21 Labs: Laboratory Results - last 24 hr 01/24/19 01/24/19 01/24/19 16:40 16:40 16:40 WBC 10.7 D RBC 3.59 L Hgb 9.7 L Hct 29.9 L MCV 83.5 MCH 26.9 L MCHC 32.3 L RDW 15.0 H Plt Count 240 MPV 7.6 Neut % (Auto) 89.5 H Lymph % (Auto) 2.8 L Crisp % (Auto) 6.5 Eos % (Auto) 0.7 Baso % (Auto) 0.5 Neut # (Auto) 9.6 H Lymph # (Auto) 0.3 L Crisp # (Auto) 0.7 Eos # (Auto) 0.1 Baso # (Auto) 0.1 Neutrophils % (Manual) 92 H Lymphocytes % (Manual) 2 L Monocytes % (Manual) 5 Eosinophils % (Manual) 1 Basophils % (Manual) Platelet Estimate Normal Hypochromasia (manual) Poikilocytosis (manual Anisocytosis (manual) PT 10.9 INR 1.0 APTT 31.0 Sodium 139 Potassium 5.2 Chloride 106 Carbon Dioxide 19 L Anion Gap 19 BUN 57 H Creatinine 5.5 H Est GFR ( Amer) 10 Est GFR (Non-Af Amer) 8 Random Glucose 116 H D Calcium 10.1 Phosphorus Magnesium Total Bilirubin 0.5 AST 30 ALT 17 Alkaline Phosphatase 113 Total Protein 8.3 Albumin 4.7 Globulin 3.7 Albumin/Globulin Ratio 1.3 01/25/19 01/25/19 01/25/19 07:21 07:21 07:21 WBC 10.8 RBC 3.33 L Hgb 9.2 L Hct 27.9 L MCV 83.6 MCH 27.5 MCHC 32.9 L RDW 15.3 H Plt Count 239 MPV 7.6 Neut % (Auto) 89.9 H Lymph % (Auto) 3.2 L Crisp % (Auto) 6.3 Eos % (Auto) 0.4 Baso % (Auto) 0.2 Neut # (Auto) 9.7 H Lymph # (Auto) 0.3 L Crisp # (Auto) 0.7 Eos # (Auto) 0.0 Baso # (Auto) 0.0 Neutrophils % (Manual) 90 H Lymphocytes % (Manual) 2 L Monocytes % (Manual) 7 Eosinophils % (Manual) Basophils % (Manual) 1 Platelet Estimate Normal Hypochromasia (manual) Slight Poikilocytosis (manual Slight Anisocytosis (manual) Slight PT 11.2 INR 1.0 APTT 34.0 Sodium 141 Potassium 4.2 Chloride 107 Carbon Dioxide 22 Anion Gap 16 BUN 56 H Creatinine 6.1 H Est GFR ( Amer) 9 Est GFR (Non-Af Amer) 7 Random Glucose 113 H Calcium 10.7 H Phosphorus 4.8 H Magnesium 2.4 H Total Bilirubin 0.4 AST 26 ALT 21 Alkaline Phosphatase 118 Total Protein 7.4 Albumin 4.4 Globulin 3.0 Albumin/Globulin Ratio 1.4
[2019-01-25 18:30] LABS: HEPATITIS B SURFACE AG Negative (NEGATIVE)
[2019-01-25 18:36] LABS: FERRITIN 74.6 ng/mL; HEPATITIS B CORE AB NEGATIVE (NEGATIVE)
[2019-01-25 18:48] LABS: HEPATITIS C ANTIBODY NEGATIVE (NEGATIVE)
--- NOTE | 2019-01-26 01:05 | OP ---
PROCEDURE DATE: 01/25/2019 PREOPERATIVE DIAGNOSIS: Renal failure. POSTOPERATIVE DIAGNOSIS: Renal failure. PROCEDURE CARRIED OUT: Placement of Perm-A-Cath, right jugular vein with C-arm fluoroscopy, ultrasound-guided puncture, and micropuncture technique. We did drainage of paronychia left pinky. SURGEON: Michael Ruiz Jr., MD EXECUTIVE DIRECTOR [employer]: Juventino Jack DO ANESTHESIA ADMINISTERED BY: Aranza Ingram CRNA INDICATIONS: The patient is a young woman with renal insufficiency, had a fistula created in her left arm. This was working last week. Yesterday, she presented with the need for dialysis and the fistula has occluded. OPERATIVE FINDINGS: Catheter was inserted uneventfully via jugular vein. DESCRIPTION OF PROCEDURE: The patient was given local anesthesia and intravenous antibiotics. Standard skin prep was carried out. Using ultrasound guidance and micropuncture technique, the right jugular vein was cannulated. Under fluoroscopic control, a guidewire was advanced centrally. This was exchanged for an 0.035 wire, sheath dilated, catheter passed, catheter positioned appropriately with good inflow and outflow and was secured to the skin. We then dressed this and finished this part of the operation. At the same time, in the left arm, the patient has an extremely painful left paronychia. This was drained in the operating room. Michael Ruiz Jr., MD
[2019-01-26] MEDS: Tramadol 25 mg PO PRN ×2 (01:08→19:09)
[2019-01-26 07:55] LABS: BASO % 0.5 % (0.0-2.0); EOS # 0.3 K/uL (0.0-0.7); HEMOGLOBIN 7.9 g/dL (11.0-16.0); LYMPH # 0.4 K/uL (1.0-4.3); LYMPH % 4.4 % (20.0-40.0); MEAN CELL VOLUME 84.2 fL (81.0-99.0); MEAN CORPUSCULAR HEMOGLOBIN 27.7 pg (27.0-31.0); MEAN CORPUSCULAR HGB CONC 32.9 g/dL (33.0-37.0); MEAN PLATELET VOLUME 7.7 fL (7.2-11.7); MONO # 0.8 K/uL (0.0-0.8); MONO % 8.8 % (0.0-10.0); NEUT # 7.4 K/uL (1.8-7.0); NEUT % 83.3 % (50.0-75.0); PLATELET COUNT 181 K/uL (130-400); RBC 2.85 Mil/uL (3.80-5.20); RED CELL DISTRIBUTION WIDTH 15.1 % (11.5-14.5); WHITE BLOOD COUNT 8.9 K/uL (4.8-10.8)
[2019-01-26 08:24] LABS: ALB/GLOB RATIO 1.3 (1.0-2.1); ALBUMIN 3.7 g/dL (3.5-5.0); CALCIUM 10.1 mg/dl (8.6-10.4)
[2019-01-26 08:46] LABS: ANISOCYTOSIS SLIGHT; EOSINOPHIL 3 % (0-4); HYPOCHROMIC SLIGHT; LYMPHOCYTE 3 % (20-40); MONOCYTE 9 % (0-10); NEUTROPHIL 85 % (50-75); PLATELET ESTIMATE NORMAL (NORMAL); TOTAL CELLS COUNTED 100
--- NOTE | 2019-01-26 08:52 | CP.PCM.PN ---
Subjective - Date & Time of Evaluation Date of Evaluation: 01/19/19 Time of Evaluation: 08:45 - Subjective Subjective: permacath inserted yesterday paronychial abcess drained bp mildly elvated afebrile creatinine up to 6.2 awake alert comfortable in bed pain over permacath and left 5th finger ROS chills last PM no fever no sob or cough no chest pain no abd pain, n,v,dno dysuria hematuria see above Objective - Vital Signs/Intake and Output Vital Signs (last 24 hours): Temp Pulse Resp BP Pulse Ox 97.8 F 77 20 163/80 H 97 01/26/19 07:42 01/26/19 07:42 01/26/19 07:42 01/26/19 07:42 01/26/19 08:22 Intake and Output: 01/26/19 01/26/19 06:59 18:59 Intake Total 550 Balance 550 - Medications Medications: Current Medications Amlodipine Besylate (Norvasc) 10 mg PO DAILY [facility] Last Admin: 01/25/19 08:59 Dose: 10 mg Diphenhydramine HCl (Benadryl) 25 mg PO Q6 PRN PRN Reason: Itching / Pruritus Furosemide (Lasix) 40 mg PO DAILY [facility] Last Admin: 01/25/19 08:59 Dose: 40 mg Labetalol HCl (Trandate) 100 mg PO DAILY [facility] Last Admin: 01/25/19 09:00 Dose: 100 mg Pneumococcal Polyvalent Vaccine (Pneumovax 23 Vaccine) 0.5 ml IM .ONCE ONE Stop: 01/26/19 10:01 Sennosides (Senokot Tab) 8.6 mg PO BID PRN PRN Reason: Constipation Sodium Bicarbonate (Sodium Bicarbonate Tab) 650 mg PO BID [facility] Last Admin: 01/25/19 17:37 Dose: 650 mg Tramadol HCl (Ultram) 25 mg PO Q8 PRN PRN Reason: pain Last Admin: 01/26/19 01:08 Dose: 25 mg - Labs Labs: 01/26/19 07:45 01/26/19 07:45 PT 11.2 SECONDS (9.7-12.2) 01/25/19 07:21 INR 1.0 01/25/19 07:21 APTT 34.0 SECONDS (21-34) 01/25/19 07:21 - Constitutional Appears: Well, No Acute Distress - Head Exam Head Exam: NORMOCEPHALIC - ENT Exam ENT Exam: Mucous Membranes Moist - Respiratory Exam Respiratory Exam: Clear to Ausculation Bilateral, NORMAL BREATHING PATTERN - Cardiovascular Exam Cardiovascular Exam: REGULAR RHYTHM. absent: JVD Additional comments: rt jugular permacath - GI/Abdominal Exam GI & Abdominal Exam: Soft. absent: Distended, Tenderness - Extremities Exam Extremities Exam: Pedal Edema. absent: Calf Tenderness Additional comments: left hand in bandage - Back Exam Back Exam: absent: CVA tenderness (L), CVA tenderness (R) - Neurological Exam Neurological Exam: Alert, Awake - Psychiatric Exam Psychiatric exam: Normal Affect, Normal Mood - Skin Skin Exam: Dry, Warm Assessment and Plan (1) HIV (human immunodeficiency virus infection) Status: Acute (2) HIV-associated nephropathy Status: Acute - Assessment and Plan (Free Text) Plan: first dialysis today
[2019-01-26] MEDS ORDERED: Pneumococcal 23-Valent Vaccine IM ONE (10:00)
--- NOTE | 2019-01-26 12:45 | CARD ---
APPROVED REPORT Date of service: 01/25/2019 EKG Measurement Heart [id number] MI [id number] <Conclusion> Normal sinus rhythm with sinus arrhythmia Normal ECG
--- NOTE | 2019-01-26 19:05 | CP.PCM.PN ---
Subjective - Date & Time of Evaluation Date of Evaluation: 01/26/19 Time of Evaluation: 19:02 - Subjective Subjective: INFECTIOUS DISEASE PROGRESS NOTES FRED ABAD MD, FACP 01/26/2019 CHART REVIEWED PT EXAMINED CASE DISCUSSED WITH DR PAULSON RESTARTED HER HIV MEDS FOR NOW AND ADDED VIBRMYCIN FOR [facility] PO AND CEFEPIME DAILY WITH IV AVAILABLE. TO CHANGE HER HIV MEDS AN OUTPATIENT, SHORTLY permacath inserted yesterday paronychial abcess drained bp mildly elvated afebrile creatinine up to 6.2 awake alert comfortable in bed pain over permacath and left 5th finger ROS chills last PM no fever no sob or cough no chest pain no abd pain, n,v,dno dysuria hematuria see above Objective - Vital Signs/Intake and Output Vital Signs (last 24 hours): Temp Pulse Resp BP Pulse Ox 97.8 F 77 20 163/80 H 97 01/26/19 07:42 01/26/19 07:42 01/26/19 07:42 01/26/19 07:42 01/26/19 08:22 Intake and Output: 01/26/19 01/26/19 06:59 18:59 Intake Total 550 Balance 550 - Medications Medications: Current Medications Amlodipine Besylate (Norvasc) 10 mg PO DAILY [facility] Last Admin: 01/25/19 08:59 Dose: 10 mg Diphenhydramine HCl (Benadryl) 25 mg PO Q6 PRN PRN Reason: Itching / Pruritus Furosemide (Lasix) 40 mg PO DAILY [facility] Last Admin: 01/25/19 08:59 Dose: 40 mg Labetalol HCl (Trandate) 100 mg PO DAILY [facility] Last Admin: 01/25/19 09:00 Dose: 100 mg Pneumococcal Polyvalent Vaccine (Pneumovax 23 Vaccine) 0.5 ml IM .ONCE ONE Stop: 01/26/19 10:01 Sennosides (Senokot Tab) 8.6 mg PO BID PRN PRN Reason: Constipation Sodium Bicarbonate (Sodium Bicarbonate Tab) 650 mg PO BID [facility] Last Admin: 01/25/19 17:37 Dose: 650 mg Tramadol HCl (Ultram) 25 mg PO Q8 PRN PRN Reason: pain Last Admin: 01/26/19 01:08 Dose: 25 mg - Labs Labs: 01/26/19 07:45 01/26/19 07:45 PT 11.2 SECONDS (9.7-12.2) 01/25/19 07:21 INR 1.0 01/25/19 07:21 APTT 34.0 SECONDS (21-34) 01/25/19 07:21 - Constitutional Appears: Well, No Acute Distress - Head Exam Head Exam: NORMOCEPHALIC - ENT Exam ENT Exam: Mucous Membranes Moist - Respiratory Exam Respiratory Exam: Clear to Ausculation Bilateral, NORMAL BREATHING PATTERN - Cardiovascular Exam Cardiovascular Exam: REGULAR RHYTHM. absent: JVD Additional comments: rt jugular permacath - GI/Abdominal Exam GI & Abdominal Exam: Soft. absent: Distended, Tenderness - Extremities Exam Extremities Exam: Pedal Edema. absent: Calf Tenderness Additional comments: left hand in bandage - Back Exam Back Exam: absent: CVA tenderness (L), CVA tenderness (R) - Neurological Exam Neurological Exam: Alert, Awake - Psychiatric Exam Psychiatric exam: Normal Affect, Normal Mood - Skin Skin Exam: Dry, Warm Assessment and Plan (1) HIV (human immunodeficiency virus infection) Status: Acute (2) HIV-associated nephropathy Status: Acute - Assessment and Plan (Free Text) Plan: first dialysis today Objective - Vital Signs/Intake and Output Vital Signs (last 24 hours): Temp Pulse Resp BP Pulse Ox 97.9 F 100 H 20 151/104 H 100 01/26/19 17:40 01/26/19 18:00 01/26/19 17:40 01/26/19 17:40 01/26/19 17:40 - Medications Medications: Current Medications Abacavir Sulfate (Ziagen) 300 mg PO BID [facility]; Protocol Amlodipine Besylate (Norvasc) 10 mg PO DAILY [facility] Last Admin: 01/26/19 10:07 Dose: Not Given Diphenhydramine HCl (Benadryl) 25 mg PO Q6 PRN PRN Reason: Itching / Pruritus Doxycycline Hyclate (Doryx) 100 mg PO BIDBS [facility]; Protocol Fosamprenavir Calcium (Lexiva) 700 mg PO BID [facility]; Protocol Furosemide (Lasix) 40 mg PO DAILY [facility] Last Admin: 01/26/19 10:06 Dose: 40 mg Labetalol HCl (Trandate) 100 mg PO DAILY [facility] Last Admin: 01/26/19 10:07 Dose: Not Given Lamivudine (Epivir) 100 mg PO BID [facility]; Protocol Ritonavir (Norvir) 100 mg PO BIDBS [facility]; Protocol Sennosides (Senokot Tab) 8.6 mg PO BID PRN PRN Reason: Constipation Sodium Bicarbonate (Sodium Bicarbonate Tab) 650 mg PO BID [facility] Last Admin: 01/26/19 18:12 Dose: 650 mg Tramadol HCl (Ultram) 25 mg PO Q8 PRN PRN Reason: pain Last Admin: 01/26/19 01:08 Dose: 25 mg - Labs Labs: 01/26/19 07:45 01/26/19 07:45 PT 11.2 SECONDS (9.7-12.2) 01/25/19 07:21 INR 1.0 01/25/19 07:21 APTT 34.0 SECONDS (21-34) 01/25/19 07:21
--- NOTE | 2019-01-27 07:38 | CP.PCM.PN ---
Subjective - Date & Time of Evaluation Date of Evaluation: 01/26/19 Time of Evaluation: 08:13 - Subjective Subjective: Patient underwent hemodialysis today. At the end of the dialysis patient developed a severe cramps in the legs. Patient is otherwise feeling well. No nausea no vomiting. Some difficult time and going to the bathroom Vital signs are stable medications reviewed the clinical examination unremarkable We will continue the current treatment. Patient will be getting the next hemodialysis in 2 days. And she will be possibly discharged after that. We will plan for outpatient dialysis Objective - Vital Signs/Intake and Output Vital Signs (last 24 hours): Temp Pulse Resp BP Pulse Ox 98.9 F 67 20 148/85 99 01/27/19 07:00 01/27/19 07:00 01/27/19 07:00 01/27/19 07:00 01/27/19 07:00 - Medications Medications: Current Medications Abacavir Sulfate (Ziagen) 300 mg PO BID [facility]; Protocol Amlodipine Besylate (Norvasc) 10 mg PO DAILY [facility] Last Admin: 01/26/19 10:07 Dose: Not Given Diphenhydramine HCl (Benadryl) 25 mg PO Q6 PRN PRN Reason: Itching / Pruritus Doxycycline Hyclate (Doryx) 100 mg PO BIDBS [facility]; Protocol Fosamprenavir Calcium (Lexiva) 700 mg PO BID [facility]; Protocol Furosemide (Lasix) 40 mg PO DAILY [facility] Last Admin: 01/26/19 10:06 Dose: 40 mg Cefepime HCl 0.5 gm/ Sodium (Chloride) 50 mls @ 100 mls/hr IVPB Q24H [facility] Last Admin: 01/26/19 21:39 Dose: 100 mls/hr Labetalol HCl (Trandate) 100 mg PO DAILY [facility] Last Admin: 01/26/19 10:07 Dose: Not Given Lamivudine (Epivir) 100 mg PO BID [facility]; Protocol Ritonavir (Norvir) 100 mg PO BIDBS [facility]; Protocol Sennosides (Senokot Tab) 8.6 mg PO BID PRN PRN Reason: Constipation Sodium Bicarbonate (Sodium Bicarbonate Tab) 650 mg PO BID [facility] Last Admin: 01/26/19 18:12 Dose: 650 mg Tramadol HCl (Ultram) 25 mg PO Q8 PRN PRN Reason: pain Last Admin: 01/26/19 19:09 Dose: 25 mg - Labs Labs: 04/30/19 07:45 01/26/19 07:45 PT 11.2 SECONDS (9.7-12.2) 01/25/19 07:21 INR 1.0 01/25/19 07:21 APTT 34.0 SECONDS (21-34) 01/25/19 07:21
--- NOTE | 2019-01-27 07:38 | CP.PCM.HP ---
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 Patient was doing well, she was feeling the thrill over the left arm AV fistula for long time. past 2 days prior to the hospitalization, she was not feeling the thrill in the left arm. She went to the spiritism, at the time she suddenly felt a severe pain over the left index finger as well as middle finger. And she was also noticed increasing swelling in the left upper extremity. 1 of the nurse friend identified that there was no thrill and advised him to go to the hospital. Patient came to the emergency room with a severe pain in the left arm especially in the little finger. She did not have any other systemic symptoms she was feeling somewhat bad because of not working fistula. Patient had a fistula 3 years ago, and in the process of getting the dialysis at any time. Patient did not have any fever no chills no shortness of breath. Past medical history: Near end-stage renal dialysis, hypertension, HIV, CVA with left-sided weakness, history of old tuberculosis Surgical history includes AV fistula on the left side, cataracts. Surgical history noted Social history non-smoker nonalcoholic Family history noncontributory Review of system: Complaining of fatigue and weakness recently. She has no chest pain. Denies any headache at this time. But she is somewhat feeling depressed because of this left arm problem She has no diarrhea no GI symptoms. Pain over the left upper extremity, as well as in the little finger noted. On examination: Vital signs are stable otherwise. Chest bilateral good air entry, no wheezing or rales noted, regular heart sounds noted Nontender abdomen. No pedal edema. Patient has a left arm AV fistula which was having no thrill. Little finger on the left arm has a dressed wound noted, she had surgical intervention incision and drainage. Labs reviewed Nonspecific. Chest x-ray nonspecific Assessment and recommendation: 58-year-old female with a history of HIV, hypertension, hypercholesterolemia, CVA with left-sided weakness, voided, renal insufficiency. Patient now admitted with increasing worsening renal failure. Also worsening renal status, awaiting hemodialysis. Patient will be receiving the hemodialysis catheter. The patient for the dialysis. Antibiotic as per ID. We will continue the current treatment DVT and GI prophylaxis and will follow the patient Present on Admission - Present on Admission Any Indicators Present on Admission: No History of DVT/PE: No History of Uncontrolled Diabetes: No Urinary Catheter: No Decubitus Ulcer Present: No Past Patient History - Past Medical History & Family History Past Medical History?: Yes - Past Social History Smoking Status: Never Smoked - CARDIAC Hx Hypertension: Yes Hx Peripheral Edema: Yes (left leg"BETTER NOW THAT I'M ON THE WATER PILL") - PULMONARY Hx Respiratory Disorders: Yes Hx Tuberculosis: Yes (treated 1993) - NEUROLOGICAL Hx Neurological Disorder: Yes HX Cerebrovascular Accident: Yes (2010 left sided weakness) - HEENT Hx HEENT Problems: Yes Hx Cataracts: Yes - RENAL Hx Chronic Kidney Disease: Yes Hx Kidney Stones: Yes - ENDOCRINE/METABOLIC Hx Endocrine Disorders: No - HEMATOLOGICAL/ONCOLOGICAL Hx Anemia: Yes Hx Human Immunodeficiency Virus (HIV): Yes - INTEGUMENTARY Hx Dermatological Problems: No - MUSCULOSKELETAL/RHEUMATOLOGICAL Hx Musculoskeletal Disorders: Yes Hx Degenerative Joint Disease: Yes (spine) Hx Falls: No - GENITOURINARY/GYNECOLOGICAL Hx Genitourinary Disorders: No - PSYCHIATRIC Hx Substance Use: No - SURGICAL HISTORY Hx Surgeries: Yes Hx Arteriovenous Shunt: Yes (LEFT UPPER ARM(08/11/17)) Hx Dilation and Curettage: Yes (thermal ablation) Hx Tubal Ligation: Yes - ANESTHESIA Hx Anesthesia: Yes Hx Anesthesia Reactions: Yes (wakes up coughing/ nausea) Hx Malignant Hyperthermia: No Meds Allergies/Adverse Reactions: Allergies Allergy/AdvReac Type Severity Reaction Status Date / Time FISH Allergy Intermediate RASH Verified 08/06/17 10:10 Iodinated Contrast- Oral and Allergy Intermediate RASH Verified 08/06/17 10:09 IV Dye iodine Allergy Intermediate RASH Verified 08/06/17 10:08 shellfish derived Allergy Intermediate RASH Verified 08/06/17 10:09 Sulfa (Sulfonamide Allergy Intermediate RASH Verified 08/06/17 10:09 Antibiotics) hydrochlorothiazide Allergy RASH Verified 08/11/17 09:47 Results - Vital Signs Recent Vital Signs: Last Vital Signs Temp 98.9 F 01/27/19 07:00 Pulse 67 01/27/19 07:00 Resp 20 01/27/19 07:00 BP 148/85 01/27/19 07:00 Pulse Ox 99 01/27/19 07:00 - Labs Result Diagrams: 01/26/19 07:45 01/26/19 07:45 Labs: Laboratory Results - last 24 hr 01/25/19 01/26/19 01/26/19 17:34 07:45 07:45 WBC 8.9 RBC 2.85 L Hgb 7.9 L Hct 24.0 L MCV 84.2 MCH 27.7 MCHC 32.9 L RDW 15.1 H Plt Count 181 MPV 7.7 Neut % (Auto) 83.3 H Lymph % (Auto) 4.4 L [place] % (Auto) 8.8 Eos % (Auto) 3.0 Baso % (Auto) 0.5 Neut # (Auto) 7.4 H Lymph # (Auto) 0.4 L [place] # (Auto) 0.8 Eos # (Auto) 0.3 Baso # (Auto) 0.0 Neutrophils % (Manual) 85 H Lymphocytes % (Manual) 3 L Monocytes % (Manual) 9 Eosinophils % (Manual) 3 Platelet Estimate Normal Hypochromasia (manual) Slight Anisocytosis (manual) Slight Sodium 140 Potassium 3.9 Chloride 107 Carbon Dioxide 23 Anion Gap 14 BUN 57 H Creatinine 6.2 H Est GFR ( Amer) 8 Est GFR (Non-Af Amer) 7 Random Glucose 95 Calcium 10.1 Phosphorus 4.7 H Magnesium 2.3 Total Bilirubin 0.4 AST 21 ALT 14 Alkaline Phosphatase 99 Total Protein 6.5 Albumin 3.7 Globulin 2.8 Albumin/Globulin Ratio 1.3 Hep Bs Antibody Positive
--- NOTE | 2019-01-27 07:38 | CP.PCM.PN ---
Subjective - Date & Time of Evaluation Date of Evaluation: 01/27/19 Time of Evaluation: 07:38 - Subjective Subjective: Patient today feeling well there is no pain noted. She has no abdominal pain no nausea no vomiting GI symptoms negative otherwise. We will continue the current treatment. For dialysis tomorrow. We will monitor the hemoglobin. No active bleeding at this time. Anemia likely secondary to chronic disease at this time. End-stage renal disease on dialysis now Hypertension Hyperplastic again History of CVA. Objective - Vital Signs/Intake and Output Vital Signs (last 24 hours): Temp Pulse Resp BP Pulse Ox 98.9 F 67 20 148/85 99 01/27/19 07:00 01/27/19 07:00 01/27/19 07:00 01/27/19 07:00 01/27/19 07:00 - Medications Medications: Current Medications Abacavir Sulfate (Ziagen) 300 mg PO BID [facility]; Protocol Amlodipine Besylate (Norvasc) 10 mg PO DAILY [facility] Last Admin: 01/26/19 10:07 Dose: Not Given Diphenhydramine HCl (Benadryl) 25 mg PO Q6 PRN PRN Reason: Itching / Pruritus Doxycycline Hyclate (Doryx) 100 mg PO BIDBS [facility]; Protocol Fosamprenavir Calcium (Lexiva) 700 mg PO BID [facility]; Protocol Furosemide (Lasix) 40 mg PO DAILY [facility] Last Admin: 01/26/19 10:06 Dose: 40 mg Cefepime HCl 0.5 gm/ Sodium (Chloride) 50 mls @ 100 mls/hr IVPB Q24H [facility] Last Admin: 01/26/19 21:39 Dose: 100 mls/hr Labetalol HCl (Trandate) 100 mg PO DAILY [facility] Last Admin: 01/26/19 10:07 Dose: Not Given Lamivudine (Epivir) 100 mg PO BID [facility]; Protocol Ritonavir (Norvir) 100 mg PO BIDBS [facility]; Protocol Sennosides (Senokot Tab) 8.6 mg PO BID PRN PRN Reason: Constipation Sodium Bicarbonate (Sodium Bicarbonate Tab) 650 mg PO BID [facility] Last Admin: 01/26/19 18:12 Dose: 650 mg Tramadol HCl (Ultram) 25 mg PO Q8 PRN PRN Reason: pain Last Admin: 01/26/19 19:09 Dose: 25 mg - Labs Labs: 01/26/19 07:45 01/26/19 07:45 PT 11.2 SECONDS (9.7-12.2) 01/25/19 07:21 INR 1.0 01/25/19 07:21 APTT 34.0 SECONDS (21-34) 01/25/19 07:21
[2019-01-27 09:58] VITALS: BMI 28.6
[2019-01-27] MEDS ORDERED: LamiVUDine 10 mg/ml Syringe PO SCH (10:00)
--- NOTE | 2019-01-27 13:15 | CP.PCM.PN ---
Subjective - Date & Time of Evaluation Date of Evaluation: 01/27/19 Time of Evaluation: 13:12 - Subjective Subjective: stable dialysis 01/26- did have cramps though on ABs as per ID Ca , phos increased- start renvela Iron stores low, Hg decreased- start ESAs, IV Fe Objective - Vital Signs/Intake and Output Vital Signs (last 24 hours): Temp Pulse Resp BP Pulse Ox 98.3 F 63 20 148/88 99 01/27/19 07:20 01/27/19 10:23 01/27/19 07:20 01/27/19 09:27 01/27/19 07:20 - Medications Medications: Current Medications Abacavir Sulfate (Ziagen) 300 mg PO BID [facility]; Protocol Last Admin: 01/27/19 11:00 Dose: 300 mg Amlodipine Besylate (Norvasc) 10 mg PO DAILY [facility] Last Admin: 01/27/19 09:27 Dose: 10 mg Diphenhydramine HCl (Benadryl) 25 mg PO Q6 PRN PRN Reason: Itching / Pruritus Doxycycline Hyclate (Doryx) 100 mg PO BIDBS [facility]; Protocol Last Admin: 01/27/19 08:35 Dose: 100 mg Epoetin Tolu (Procrit) 10,000 unit IV TTS [facility] Ferric Sodium Gluconate Complex (Ferrlecit) 125 mg IVPB DAILY [facility] Stop: 02/04/19 13:16 Fosamprenavir Calcium (Lexiva) 700 mg PO BID [facility]; Protocol Last Admin: 01/27/19 10:35 Dose: 700 mg Cefepime HCl 0.5 gm/ Sodium (Chloride) 50 mls @ 100 mls/hr IVPB Q24H [facility] Last Admin: 01/26/19 21:39 Dose: 100 mls/hr Labetalol HCl (Trandate) 100 mg PO DAILY [facility] Last Admin: 01/27/19 10:35 Dose: 100 mg Lamivudine (Epivir) 100 mg PO DAILY@1800 [facility]; Protocol Ritonavir (Norvir) 100 mg PO BIDBS [facility]; Protocol Last Admin: 01/27/19 08:34 Dose: 100 mg Sennosides (Senokot Tab) 8.6 mg PO BID PRN PRN Reason: Constipation Tramadol HCl (Ultram) 25 mg PO Q8 PRN PRN Reason: pain Last Admin: 01/26/19 19:09 Dose: 25 mg - Labs Labs: 01/26/19 07:45 01/26/19 07:45 PT 11.2 SECONDS (9.7-12.2) 01/25/19 07:21 INR 1.0 01/25/19 07:21 APTT 34.0 SECONDS (21-34) 01/25/19 07:21 - Constitutional Appears: No Acute Distress, Chronically Ill - Head Exam Head Exam: ATRAUMATIC, NORMAL INSPECTION - Eye Exam Eye Exam: EOMI, Normal appearance - Respiratory Exam Respiratory Exam: Clear to Ausculation Bilateral. absent: NORMAL BREATHING PATTERN - Cardiovascular Exam Cardiovascular Exam: REGULAR RHYTHM, +S1 - GI/Abdominal Exam GI & Abdominal Exam: Soft. absent: Tenderness - Extremities Exam Extremities Exam: Normal Inspection. absent: Tenderness - Neurological Exam Neurological Exam: Alert, CN II-XII Intact - Skin Skin Exam: Dry, Warm Assessment and Plan (1) Arteriovenous fistula thrombosis Status: Acute (2) HIV (human immunodeficiency virus infection) Status: Acute (3) Chronic kidney disease, stage V Status: Acute (4) HIV-associated nephropathy Status: Acute (5) Complication of vascular access for dialysis Status: Acute (6) Hypertensive chronic kidney disease with stage 5 chronic kidney disease or end stage renal disease Status: Acute (7) Hypercalcemia Status: Acute (8) ESRD (end stage renal disease) Status: Acute - Assessment and Plan (Free Text) Plan: add IV Fe add EPO add renvela check pth dialysis in AM- decrease UF goal needs HD placement
[2019-01-27] MEDS: Ferric Sodium Gluconat Complex 62.5 mg/5 ml Vial IVPB SCH (13:58)
--- NOTE | 2019-01-27 17:17 | CP.PCM.PN ---
Subjective - Date & Time of Evaluation Date of Evaluation: 01/27/19 Time of Evaluation: 17:07 - Subjective Subjective: INFECTIOUS DISEASE PROGRESS NOTES FRED ABAD MD, FACP 01/27/2019 CHART REVIEWED PT EXAMINED CASE DISCUSSED CLINICALLY MORE STABLE EVERYDAY BREATHING BETTER BUT OCC COMPLAINS OF WEAKNESS, ESPECIALLY WITH AMBULATION ANEMIA NOTED AND BEING ADDRESSED ON ORAL MEDS FOR HIV WILL RESTART HER REGULAR PO MEDS TOMORROW. TO GIVE CUBICIN POST DIALYSIS, ON DAILY CEFEPIME 500MG DAILY. BEING SEEN BY RENAL, SURGERY, MED AND ME-ID. stable dialysis 01/26- did have cramps though Ca , phos increased- start renvela Iron stores low, Hg decreased- start ESAs, IV Fe Objective - Vital Signs/Intake and Output Vital Signs (last 24 hours): Temp Pulse Resp BP Pulse Ox 98.3 F 63 20 148/88 99 01/27/19 07:20 01/27/19 10:23 01/27/19 07:20 01/27/19 09:27 01/27/19 07:20 - Medications Medications: Current Medications Abacavir Sulfate (Ziagen) 300 mg PO BID [facility]; Protocol Last Admin: 01/27/19 11:00 Dose: 300 mg Amlodipine Besylate (Norvasc) 10 mg PO DAILY [facility] Last Admin: 01/27/19 09:27 Dose: 10 mg Diphenhydramine HCl (Benadryl) 25 mg PO Q6 PRN PRN Reason: Itching / Pruritus Doxycycline Hyclate (Doryx) 100 mg PO BIDBS [facility]; Protocol Last Admin: 01/27/19 08:35 Dose: 100 mg Epoetin Tolu (Procrit) 10,000 unit IV TTS [facility] Ferric Sodium Gluconate Complex (Ferrlecit) 125 mg IVPB DAILY [facility] Stop: 02/04/19 13:16 Fosamprenavir Calcium (Lexiva) 700 mg PO BID [facility]; Protocol Last Admin: 01/27/19 10:35 Dose: 700 mg Cefepime HCl 0.5 gm/ Sodium (Chloride) 50 mls @ 100 mls/hr IVPB Q24H [facility] Last Admin: 01/26/19 21:39 Dose: 100 mls/hr Labetalol HCl (Trandate) 100 mg PO DAILY [facility] Last Admin: 01/27/19 10:35 Dose: 100 mg Lamivudine (Epivir) 100 mg PO DAILY@1800 [facility]; Protocol Ritonavir (Norvir) 100 mg PO BIDBS [facility]; Protocol Last Admin: 01/27/19 08:34 Dose: 100 mg Sennosides (Senokot Tab) 8.6 mg PO BID PRN PRN Reason: Constipation Tramadol HCl (Ultram) 25 mg PO Q8 PRN PRN Reason: pain Last Admin: 01/26/19 19:09 Dose: 25 mg - Labs Labs: 01/26/19 07:45 01/26/19 07:45 PT 11.2 SECONDS (9.7-12.2) 01/25/19 07:21 INR 1.0 01/25/19 07:21 APTT 34.0 SECONDS (21-34) 01/25/19 07:21 - Constitutional Appears: No Acute Distress, Chronically Ill - Head Exam Head Exam: ATRAUMATIC, NORMAL INSPECTION - Eye Exam Eye Exam: EOMI, Normal appearance - Respiratory Exam Respiratory Exam: Clear to Ausculation Bilateral. absent: NORMAL BREATHING PATTERN - Cardiovascular Exam Cardiovascular Exam: REGULAR RHYTHM, +S1 - GI/Abdominal Exam GI & Abdominal Exam: Soft. absent: Tenderness - Extremities Exam Extremities Exam: Normal Inspection. absent: Tenderness - Neurological Exam Neurological Exam: Alert, CN II-XII Intact - Skin Skin Exam: Dry, Warm Assessment and Plan (1) Arteriovenous fistula thrombosis Status: Acute (2) HIV (human immunodeficiency virus infection) Status: Acute (3) Chronic kidney disease, stage V Status: Acute (4) HIV-associated nephropathy Status: Acute (5) Complication of vascular access for dialysis Status: Acute (6) Hypertensive chronic kidney disease with stage 5 chronic kidney disease or end stage renal disease Status: Acute (7) Hypercalcemia Status: Acute (8) ESRD (end stage renal disease) Status: Acute - Assessment and Plan (Free Text) Plan: add IV Fe add EPO add renvela check pth dialysis in AM- decrease UF goal needs HD placement Objective - Vital Signs/Intake and Output Vital Signs (last 24 hours): Temp Pulse Resp BP Pulse Ox 98.3 F 78 20 148/88 99 01/27/19 07:20 01/27/19 12:38 01/27/19 07:20 01/27/19 09:27 01/27/19 07:20 Intake and Output: 01/27/19 01/27/19 06:59 18:59 Intake Total 600 Balance 600 - Medications Medications: Current Medications Abacavir Sulfate (Ziagen) 300 mg PO BID [facility]; Protocol Last Admin: 01/27/19 11:00 Dose: 300 mg Amlodipine Besylate (Norvasc) 10 mg PO DAILY [facility] Last Admin: 01/27/19 09:27 Dose: 10 mg Diphenhydramine HCl (Benadryl) 25 mg PO Q6 PRN PRN Reason: Itching / Pruritus Doxycycline Hyclate (Doryx) 100 mg PO BIDBS [facility]; Protocol Last Admin: 01/27/19 08:35 Dose: 100 mg Epoetin Tolu (Procrit) 10,000 unit IV TTS [facility] Ferric Sodium Gluconate Complex (Ferrlecit) 125 mg IVPB DAILY [facility] Stop: 02/04/19 14:01 Last Admin: 01/27/19 13:58 Dose: 125 mg Fosamprenavir Calcium (Lexiva) 700 mg PO BID [facility]; Protocol Last Admin: 01/27/19 10:35 Dose: 700 mg Cefepime HCl 0.5 gm/ Sodium (Chloride) 50 mls @ 100 mls/hr IVPB Q24H [facility] Last Admin: 01/26/19 21:39 Dose: 100 mls/hr Labetalol HCl (Trandate) 100 mg PO DAILY [facility] Last Admin: 01/27/19 10:35 Dose: 100 mg Lamivudine (Epivir) 100 mg PO DAILY@1800 [facility]; Protocol Ritonavir (Norvir) 100 mg PO BIDBS [facility]; Protocol Last Admin: 01/27/19 08:34 Dose: 100 mg Sennosides (Senokot Tab) 8.6 mg PO BID PRN PRN Reason: Constipation Sevelamer Carbonate (Renvela) 0.8 gm PO TIDCC [facility] Tramadol HCl (Ultram) 25 mg PO Q8 PRN PRN Reason: pain Last Admin: 01/26/19 19:09 Dose: 25 mg - Labs Labs: 01/26/19 07:45 01/26/19 07:45 PT 11.2 SECONDS (9.7-12.2) 01/25/19 07:21 INR 1.0 01/25/19 07:21 APTT 34.0 SECONDS (21-34) 01/25/19 07:21
[2019-01-27] MEDS: Sevelamer Carb 0.8 gm/Packet PO SCH (18:13)
[2019-01-28 07:35] LABS: HEMOGLOBIN 8.3 g/dL (11.0-16.0); MEAN CELL VOLUME 82.8 fL (81.0-99.0); MEAN CORPUSCULAR HEMOGLOBIN 27.6 pg (27.0-31.0); MEAN CORPUSCULAR HGB CONC 33.3 g/dL (33.0-37.0); MEAN PLATELET VOLUME 7.9 fL (7.2-11.7); RBC 2.99 Mil/uL (3.80-5.20); RED CELL DISTRIBUTION WIDTH 14.9 % (11.5-14.5); WHITE BLOOD COUNT 7.8 K/uL (4.8-10.8)
[2019-01-28] MEDS: Sevelamer Carb 0.8 gm/Packet PO SCH ×3 (08:02→17:55)
[2019-01-28 08:04] LABS: ALB/GLOB RATIO 1.4 (1.0-2.1); ALBUMIN 3.8 g/dL (3.5-5.0); CALCIUM 9.9 mg/dl (8.6-10.4)
--- NOTE | 2019-01-28 08:08 | CP.PCM.PN ---
Subjective - Date & Time of Evaluation Date of Evaluation: 01/28/19 Time of Evaluation: 08:07 - Subjective Subjective: The patient is comfortable now. She is feeling slightly stronger than yesterday. patient received Ferrlecit injection yesterday. The wound is healing well. The culture is pending at this time. Possible AV fistula revision tomorrow She may need a hemodialysis today. We will continue the current treatment. We will follow the patient Objective - Vital Signs/Intake and Output Vital Signs (last 24 hours): Temp Pulse Resp BP Pulse Ox 97.9 F 80 20 136/84 96 01/28/19 07:15 01/28/19 07:15 01/28/19 07:15 01/28/19 07:15 01/28/19 07:15 - Medications Medications: Current Medications Abacavir Sulfate (Ziagen) 300 mg PO BID [facility]; Protocol Last Admin: 01/27/19 18:13 Dose: 300 mg Amlodipine Besylate (Norvasc) 10 mg PO DAILY [facility] Last Admin: 01/27/19 09:27 Dose: 10 mg Diphenhydramine HCl (Benadryl) 25 mg PO Q6 PRN PRN Reason: Itching / Pruritus Epoetin Tolu (Procrit) 10,000 unit IV TTS [facility] Ferric Sodium Gluconate Complex (Ferrlecit) 125 mg IVPB DAILY [facility] Stop: 02/04/19 14:01 Last Admin: 01/27/19 13:58 Dose: 125 mg Fosamprenavir Calcium (Lexiva) 700 mg PO BID [facility]; Protocol Last Admin: 01/27/19 18:12 Dose: 700 mg Cefepime HCl 0.5 gm/ Sodium (Chloride) 50 mls @ 100 mls/hr IVPB Q24H [facility] Last Admin: 01/27/19 21:07 Dose: 100 mls/hr Daptomycin 500 mg/ Sodium (Chloride) 100 mls @ 100 mls/hr IV TTS [facility]; Protocol Stop: 02/02/19 20:01 Labetalol HCl (Trandate) 100 mg PO DAILY [facility] Last Admin: 01/27/19 10:35 Dose: 100 mg Lamivudine (Epivir) 100 mg PO DAILY@1800 [facility]; Protocol Ritonavir (Norvir) 100 mg PO BIDBS [facility]; Protocol Last Admin: 01/28/19 08:02 Dose: 100 mg Sennosides (Senokot Tab) 8.6 mg PO BID PRN PRN Reason: Constipation Sevelamer Carbonate (Renvela) 0.8 gm PO TIDCC [facility] Last Admin: 01/28/19 08:02 Dose: 0.8 gm Tramadol HCl (Ultram) 25 mg PO Q8 PRN PRN Reason: pain Last Admin: 01/26/19 19:09 Dose: 25 mg - Labs Labs: 01/28/19 07:19 01/28/19 07:19 PT 11.2 SECONDS (9.7-12.2) 01/25/19 07:21 INR 1.0 01/25/19 07:21 APTT 34.0 SECONDS (21-34) 01/25/19 07:21
--- NOTE | 2019-01-28 10:32 | CP.PCM.PN ---
Subjective - Date & Time of Evaluation Date of Evaluation: 01/28/19 Time of Evaluation: 10:30 - Subjective Subjective: seen at dialysis c/o lightheadedness; BP has been stable though limiting UF rate due to lightheadedness, lack of fluid overload Hg sl increased at 8.3- now on IV Fe, EPO await AV F revision in AM Ca less than 10 now Objective - Vital Signs/Intake and Output Vital Signs (last 24 hours): Temp Pulse Resp BP Pulse Ox 97.9 F 94 H 16 129/95 H 97 01/28/19 09:25 01/28/19 09:55 01/28/19 09:55 01/28/19 09:55 01/28/19 09:25 - Medications Medications: Current Medications Abacavir Sulfate (Ziagen) 300 mg PO BID [facility]; Protocol Last Admin: 01/28/19 09:45 Dose: Not Given Amlodipine Besylate (Norvasc) 10 mg PO DAILY [facility] Last Admin: 01/28/19 09:44 Dose: Not Given Diphenhydramine HCl (Benadryl) 25 mg PO Q6 PRN PRN Reason: Itching / Pruritus Epoetin Tolu (Procrit) 10,000 unit IV TTS [facility] Ferric Sodium Gluconate Complex (Ferrlecit) 125 mg IVPB DAILY [facility] Stop: 02/04/19 14:01 Last Admin: 01/27/19 13:58 Dose: 125 mg Fosamprenavir Calcium (Lexiva) 700 mg PO BID [facility]; Protocol Last Admin: 01/28/19 09:44 Dose: Not Given Cefepime HCl 0.5 gm/ Sodium (Chloride) 50 mls @ 100 mls/hr IVPB Q24H [facility] Last Admin: 01/27/19 21:07 Dose: 100 mls/hr Daptomycin 500 mg/ Sodium (Chloride) 100 mls @ 100 mls/hr IV TTS [facility]; Protocol Stop: 02/02/19 20:01 Labetalol HCl (Trandate) 100 mg PO DAILY [facility] Last Admin: 01/28/19 09:45 Dose: Not Given Lamivudine (Epivir) 100 mg PO DAILY@1800 [facility]; Protocol Ritonavir (Norvir) 100 mg PO BIDBS [facility]; Protocol Last Admin: 01/28/19 08:02 Dose: 100 mg Sennosides (Senokot Tab) 8.6 mg PO BID PRN PRN Reason: Constipation Sevelamer Carbonate (Renvela) 0.8 gm PO TIDCC [facility] Last Admin: 01/28/19 08:02 Dose: 0.8 gm Tramadol HCl (Ultram) 25 mg PO Q8 PRN PRN Reason: pain Last Admin: 01/26/19 19:09 Dose: 25 mg - Labs Labs: 01/28/19 07:19 01/28/19 07:19 PT 11.2 SECONDS (9.7-12.2) 01/25/19 07:21 INR 1.0 01/25/19 07:21 APTT 34.0 SECONDS (21-34) 01/25/19 07:21 - Constitutional Appears: No Acute Distress, Chronically Ill - Head Exam Head Exam: ATRAUMATIC, NORMAL INSPECTION - Eye Exam Eye Exam: EOMI, Normal appearance - Neck Exam Neck Exam: Normal Inspection. absent: Tenderness - Respiratory Exam Respiratory Exam: Clear to Ausculation Bilateral, NORMAL BREATHING PATTERN - Cardiovascular Exam Cardiovascular Exam: REGULAR RHYTHM, +S1 - GI/Abdominal Exam GI & Abdominal Exam: Soft. absent: Tenderness - Extremities Exam Extremities Exam: Normal Inspection. absent: Tenderness - Neurological Exam Neurological Exam: Awake, CN II-XII Intact - Skin Skin Exam: Dry, Warm Assessment and Plan (1) Arteriovenous fistula thrombosis Status: Acute (2) HIV (human immunodeficiency virus infection) Status: Acute (3) Chronic kidney disease, stage V Status: Acute (4) HIV-associated nephropathy Status: Acute (5) Complication of vascular access for dialysis Status: Acute (6) Hypertensive chronic kidney disease with stage 5 chronic kidney disease or end stage renal disease Status: Acute (7) Hypercalcemia Status: Acute (8) ESRD (end stage renal disease) Status: Acute - Assessment and Plan (Free Text) Plan: dialysis 5/, then 5/6 AV fistula revision in AM await outpt HD placement ABs as per ID continue IV Fe, EPO monitor BP- has been sl elevated
[2019-01-28] MEDS: Epoetin Alfa 10,000 unit/ml Dialysis IV SCH (11:14)
[2019-01-28] MEDS: Ferric Sodium Gluconat Complex 62.5 mg/5 ml Vial IVPB SCH (11:40)
--- NOTE | 2019-01-28 15:00 | CP.PCM.PCO ---
Physician Communication Note - Physician Communication Note Physician Communication Note: plan for AVF creation in OR tomorrow monday 01/29
[2019-01-28] MEDS: LamiVUDine 10 mg/ml Syringe PO SCH (17:55)
--- NOTE | 2019-01-28 19:04 | CP.PCM.PN ---
Subjective - Date & Time of Evaluation Date of Evaluation: 01/28/19 Time of Evaluation: 19:00 - Subjective Subjective: INFECTIOUS DISEASE PROGRESS NOTES FRED ABAD MD, FACP 01/28/2019 6T 660-A CHART REVIEWED PT EXAMINED CASE DISCUSSED WITH MED STAFF POST DIALYSIS RESPONDING TO FE AND IV ANTIBIOTICS AWATING C/S FROM PINKY FINGER LEFT HAND LUNGS CLEAR COR RR ABD SOFT c/o lightheadedness; BP has been stable though limiting UF rate due to lightheadedness, lack of fluid overload Hg sl increased at 8.3- now on IV Fe, EPO await AV F revision in AM Ca less than 10 now Objective - Vital Signs/Intake and Output Vital Signs (last 24 hours): Temp Pulse Resp BP Pulse Ox 97.9 F 94 H 16 129/95 H 97 01/28/19 09:25 01/28/19 09:55 01/28/19 09:55 01/28/19 09:55 01/28/19 09:25 - Medications Medications: Current Medications Abacavir Sulfate (Ziagen) 300 mg PO BID [facility]; Protocol Last Admin: 01/28/19 09:45 Dose: Not Given Amlodipine Besylate (Norvasc) 10 mg PO DAILY [facility] Last Admin: 01/28/19 09:44 Dose: Not Given Diphenhydramine HCl (Benadryl) 25 mg PO Q6 PRN PRN Reason: Itching / Pruritus Epoetin Tolu (Procrit) 10,000 unit IV TTS [facility] Ferric Sodium Gluconate Complex (Ferrlecit) 125 mg IVPB DAILY [facility] Stop: 02/04/19 14:01 Last Admin: 01/27/19 13:58 Dose: 125 mg Fosamprenavir Calcium (Lexiva) 700 mg PO BID [facility]; Protocol Last Admin: 01/28/19 09:44 Dose: Not Given Cefepime HCl 0.5 gm/ Sodium (Chloride) 50 mls @ 100 mls/hr IVPB Q24H [facility] Last Admin: 01/27/19 21:07 Dose: 100 mls/hr Daptomycin 500 mg/ Sodium (Chloride) 100 mls @ 100 mls/hr IV TTS [facility]; Protocol Stop: 02/02/19 20:01 Labetalol HCl (Trandate) 100 mg PO DAILY [facility] Last Admin: 01/28/19 09:45 Dose: Not Given Lamivudine (Epivir) 100 mg PO DAILY@1800 [facility]; Protocol Ritonavir (Norvir) 100 mg PO BIDBS [facility]; Protocol Last Admin: 01/28/19 08:02 Dose: 100 mg Sennosides (Senokot Tab) 8.6 mg PO BID PRN PRN Reason: Constipation Sevelamer Carbonate (Renvela) 0.8 gm PO TIDCC [facility] Last Admin: 01/28/19 08:02 Dose: 0.8 gm Tramadol HCl (Ultram) 25 mg PO Q8 PRN PRN Reason: pain Last Admin: 01/26/19 19:09 Dose: 25 mg - Labs Labs: 01/28/19 07:19 01/28/19 07:19 PT 11.2 SECONDS (9.7-12.2) 01/25/19 07:21 INR 1.0 01/25/19 07:21 APTT 34.0 SECONDS (21-34) 01/25/19 07:21 - Constitutional Appears: No Acute Distress, Chronically Ill - Head Exam Head Exam: ATRAUMATIC, NORMAL INSPECTION - Eye Exam Eye Exam: EOMI, Normal appearance - Neck Exam Neck Exam: Normal Inspection. absent: Tenderness - Respiratory Exam Respiratory Exam: Clear to Ausculation Bilateral, NORMAL BREATHING PATTERN - Cardiovascular Exam Cardiovascular Exam: REGULAR RHYTHM, +S1 - GI/Abdominal Exam GI & Abdominal Exam: Soft. absent: Tenderness - Extremities Exam Extremities Exam: Normal Inspection. absent: Tenderness - Neurological Exam Neurological Exam: Awake, CN II-XII Intact - Skin Skin Exam: Dry, Warm Assessment and Plan (1) Arteriovenous fistula thrombosis Status: Acute (2) HIV (human immunodeficiency virus infection) Status: Acute (3) Chronic kidney disease, stage V Status: Acute (4) HIV-associated nephropathy Status: Acute (5) Complication of vascular access for dialysis Status: Acute (6) Hypertensive chronic kidney disease with stage 5 chronic kidney disease or end stage renal disease Status: Acute (7) Hypercalcemia Status: Acute (8) ESRD (end stage renal disease) Status: Acute Objective - Vital Signs/Intake and Output Vital Signs (last 24 hours): Temp Pulse Resp BP Pulse Ox 97.9 F 107 H 20 126/91 H 97 01/28/19 15:05 01/28/19 16:00 01/28/19 15:05 01/28/19 15:05 01/28/19 15:05 Intake and Output: 01/28/19 01/29/19 18:59 06:59 Intake Total 600 Balance 600 - Medications Medications: Current Medications Abacavir Sulfate (Ziagen) 300 mg PO BID [facility]; Protocol Last Admin: 01/28/19 17:55 Dose: 300 mg Amlodipine Besylate (Norvasc) 10 mg PO DAILY [facility] Last Admin: 01/28/19 11:12 Dose: 10 mg Diphenhydramine HCl (Benadryl) 25 mg PO Q6 PRN PRN Reason: Itching / Pruritus Epoetin Tolu (Procrit) 10,000 unit IV TTS [facility] Last Admin: 01/28/19 11:14 Dose: 10,000 unit Ferric Sodium Gluconate Complex (Ferrlecit) 125 mg IVPB DAILY [facility] Stop: 02/04/19 14:01 Last Admin: 01/28/19 11:40 Dose: 125 mg Fosamprenavir Calcium (Lexiva) 700 mg PO BID [facility]; Protocol Last Admin: 01/28/19 17:55 Dose: 700 mg Cefepime HCl 0.5 gm/ Sodium (Chloride) 50 mls @ 100 mls/hr IVPB Q24H [facility] Last Admin: 01/27/19 21:07 Dose: 100 mls/hr Daptomycin 500 mg/ Sodium (Chloride) 100 mls @ 100 mls/hr IV TTS [facility]; Protocol Stop: 02/02/19 20:01 Labetalol HCl (Trandate) 100 mg PO DAILY [facility] Last Admin: 01/28/19 11:11 Dose: 100 mg Lamivudine (Epivir) 100 mg PO DAILY@1800 [facility]; Protocol Last Admin: 01/28/19 17:55 Dose: 100 mg Ritonavir (Norvir) 100 mg PO BIDBS [facility]; Protocol Last Admin: 01/28/19 17:05 Dose: 100 mg Sennosides (Senokot Tab) 8.6 mg PO BID PRN PRN Reason: Constipation Sevelamer Carbonate (Renvela) 0.8 gm PO TIDCC [facility] Last Admin: 01/28/19 17:55 Dose: 0.8 gm Tramadol HCl (Ultram) 25 mg PO Q8 PRN PRN Reason: pain Last Admin: 01/26/19 19:09 Dose: 25 mg - Labs Labs: 01/28/19 07:19 01/28/19 07:19 PT 11.2 SECONDS (9.7-12.2) 01/25/19 07:21 INR 1.0 01/25/19 07:21 APTT 34.0 SECONDS (21-34) 01/25/19 07:21
[2019-01-28] MEDS: DAPTOmycin 500 MG in Sodium Chloride 0.9% 100 ML IV SCH (19:41)
[2019-01-29] MEDS: Sevelamer Carb 0.8 gm/Packet PO SCH ×3 (08:03→17:52)
[2019-01-29 08:48] LABS: INR 1.1; PROTHROMBIN TIME 11.8 SECONDS (9.7-12.2)
[2019-01-29 08:50] LABS: BASO % 0.5 % (0.0-2.0); EOS # 0.2 K/uL (0.0-0.7); EOS % 2.7 % (0.0-4.0); HEMOGLOBIN 8.6 g/dL (11.0-16.0); LYMPH # 0.4 K/uL (1.0-4.3); LYMPH % 5.2 % (20.0-40.0); MEAN CELL VOLUME 82.8 fL (81.0-99.0); MEAN CORPUSCULAR HGB CONC 32.6 g/dL (33.0-37.0); MEAN PLATELET VOLUME 7.7 fL (7.2-11.7); MONO # 0.8 K/uL (0.0-0.8); MONO % 10.9 % (0.0-10.0); NEUT # 6.2 K/uL (1.8-7.0); NEUT % 80.7 % (50.0-75.0); PLATELET COUNT 198 K/uL (130-400); RED CELL DISTRIBUTION WIDTH 14.6 % (11.5-14.5); WHITE BLOOD COUNT 7.6 K/uL (4.8-10.8)
[2019-01-29 09:01] LABS: ALB/GLOB RATIO 1.3 (1.0-2.1); CALCIUM 10.4 mg/dl (8.6-10.4)
[2019-01-29] MEDS: Ferric Sodium Gluconat Complex 62.5 mg/5 ml Vial IVPB SCH (09:47)
[2019-01-29 10:25] LABS: BANDS 1 % (0-2); EOSINOPHIL 2 % (0-4); LYMPHOCYTE 3 % (20-40); MONOCYTE 10 % (0-10); NEUTROPHIL 84 % (50-75); PLATELET ESTIMATE NORMAL (NORMAL); TOTAL CELLS COUNTED 100
[2019-01-29 10:26] LABS: HYPOCHROMIC SLIGHT
[2019-01-29] MEDS ORDERED: HEPARIN-NS 5,000 UNITS/500 ML 5,000 UNIT/500 ML BAG IV ONE (11:42)
[2019-01-29] MEDS ORDERED: Midazolam 2 MG/2 ML VIAL ONE (12:07)
[2019-01-29] MEDS ORDERED: Propofol 10 mg/ml Inj (20 ML) ONE (12:07)
[2019-01-29] MEDS ORDERED: Lidocaine Hydrochloride 5 ML INJ ONE (12:08)
[2019-01-29] MEDS ORDERED: ePHEDrine 50 mg/ml Inj ONE (12:29)
--- NOTE | 2019-01-29 13:18 | CP.PCM.PN ---
Subjective - Date & Time of Evaluation Date of Evaluation: 01/29/19 Time of Evaluation: 13:13 - Subjective Subjective: for new AV fistula now stable dialysis so far, dizzy at times Ca elevated still, PTH elevated- will start sensipar BP controlled Objective - Vital Signs/Intake and Output Vital Signs (last 24 hours): Temp Pulse Resp BP Pulse Ox 98.1 F 71 20 147/92 H 96 01/29/19 07:00 01/29/19 07:09 01/29/19 07:00 01/29/19 07:00 01/29/19 07:00 Intake and Output: 01/29/19 01/29/19 06:59 18:59 Intake Total 150 0 Balance 150 0 - Medications Medications: Current Medications Abacavir Sulfate (Ziagen) 300 mg PO BID [facility]; Protocol Last Admin: 01/29/19 09:49 Dose: 300 mg Amlodipine Besylate (Norvasc) 10 mg PO DAILY [facility] Last Admin: 01/29/19 09:48 Dose: 10 mg Diphenhydramine HCl (Benadryl) 25 mg PO Q6 PRN PRN Reason: Itching / Pruritus Epoetin Tolu (Procrit) 10,000 unit IV TTS [facility] Last Admin: 01/28/19 11:14 Dose: 10,000 unit Ferric Sodium Gluconate Complex (Ferrlecit) 125 mg IVPB DAILY [facility] Stop: 02/04/19 14:01 Last Admin: 01/29/19 09:47 Dose: 125 mg Fosamprenavir Calcium (Lexiva) 700 mg PO BID [facility]; Protocol Last Admin: 01/29/19 09:50 Dose: 700 mg Cefepime HCl 0.5 gm/ Sodium (Chloride) 50 mls @ 100 mls/hr IVPB Q24H [facility] Last Admin: 01/28/19 19:59 Dose: 100 mls/hr Daptomycin 500 mg/ Sodium (Chloride) 100 mls @ 100 mls/hr IV TTS [facility]; Protocol Stop: 02/02/19 20:01 Last Admin: 01/28/19 19:41 Dose: 100 mls/hr Labetalol HCl (Trandate) 100 mg PO DAILY [facility] Last Admin: 01/29/19 09:49 Dose: 100 mg Lamivudine (Epivir) 100 mg PO DAILY@1800 [facility]; Protocol Last Admin: 01/28/19 17:55 Dose: 100 mg Ritonavir (Norvir) 100 mg PO BIDBS [facility]; Protocol Last Admin: 01/29/19 08:03 Dose: 100 mg Sennosides (Senokot Tab) 8.6 mg PO BID PRN PRN Reason: Constipation Sevelamer Carbonate (Renvela) 0.8 gm PO TIDCC [facility] Last Admin: 01/29/19 11:50 Dose: Not Given Tramadol HCl (Ultram) 25 mg PO Q8 PRN PRN Reason: pain Last Admin: 01/26/19 19:09 Dose: 25 mg - Labs Labs: 01/29/19 08:28 01/29/19 08:28 PT 11.8 SECONDS (9.7-12.2) 01/29/19 08:28 INR 1.1 01/29/19 08:28 APTT 33.0 SECONDS (21-34) 01/29/19 08:28 - Constitutional Appears: No Acute Distress, Chronically Ill - Head Exam Head Exam: ATRAUMATIC, NORMAL INSPECTION - Eye Exam Eye Exam: EOMI, Normal appearance - Neck Exam Neck Exam: Normal Inspection. absent: Tenderness - Respiratory Exam Respiratory Exam: Clear to Ausculation Bilateral, NORMAL BREATHING PATTERN - Cardiovascular Exam Cardiovascular Exam: REGULAR RHYTHM, +S1 - GI/Abdominal Exam GI & Abdominal Exam: Soft. absent: Tenderness - Extremities Exam Extremities Exam: Normal Inspection. absent: Tenderness - Neurological Exam Neurological Exam: Awake, CN II-XII Intact - Skin Skin Exam: Dry, Warm Assessment and Plan (1) Arteriovenous fistula thrombosis Status: Acute (2) HIV (human immunodeficiency virus infection) Status: Acute (3) Chronic kidney disease, stage V Status: Acute (4) HIV-associated nephropathy Status: Acute (5) Complication of vascular access for dialysis Status: Acute (6) Hypertensive chronic kidney disease with stage 5 chronic kidney disease or end stage renal disease Status: Acute (7) Hypercalcemia Status: Acute (8) ESRD (end stage renal disease) Status: Acute - Assessment and Plan (Free Text) Plan: dialysis in AM, again 5/6 start sensipar monitor AV access post surgery
[2019-01-29] MEDS ORDERED: Sodium Chloride 0.9% 250 ML IV ONE (15:03)
[2019-01-29] MEDS ORDERED: HYDROmorphone 0.5 mg/0.5 ml ISec IVP PRN (15:06)
[2019-01-29] MEDS ORDERED: Oxycodone/Acetaminophen 5/325 mg Tab PO PRN (15:06)
--- NOTE | 2019-01-29 15:08 | PCM.SURG1 ---
<Juventino Jack - Last Filed: 01/29/19 15:07> Surgeon's Initial Post Op Note - Surgeon's Notes Surgeon: Dr. Ruiz Incident Response Consultant: Guero PGY2 Type of Anesthesia: General LMA Anesthesia Administered By: Dr. Putnam Pre-Operative Diagnosis: ESRD on HD Operative Findings: proximal patent artery and vein, av shunt with patent anastomsis after creation Post-Operative Diagnosis: ESRD on HD Operation Performed: LUE AV shunt creation Specimen/Specimens Removed: N/A Estimated Blood Loss: EBL {In ML}: 50 Blood Products Given: N/A Drains Used: No Drains Post-Op Condition: Good Date of Surgery/Procedure: 01/29/19 Time of Surgery/Procedure: 15:08 <Michael Ruiz Jr. - Last Filed: 01/30/19 11:06> Surgeon's Initial Post Op Note - Surgeon's Notes Operative Findings: anastomosis. diminshed puise with excellent doppler and pulse ox tracings
[2019-01-29] MEDS: LamiVUDine 10 mg/ml Syringe PO SCH (17:52)
[2019-01-30] MEDS: Tramadol 25 mg PO PRN (01:46)
--- NOTE | 2019-01-30 06:50 | CP.PCM.PN ---
Subjective - Date & Time of Evaluation Date of Evaluation: 01/29/19 Time of Evaluation: 19:00 - Subjective Subjective: Patient underwent surgical procedure revascularization of the AV fistula left upper extremity. Patient did very well with the procedure. But complaining of pain. Also having a difficult time in moving the left upper extremity. Grossly Clinical examination is unremarkable except the patient is feeling sleepy and drowsy. We will continue the current treatment. Possible hemodialysis tomorrow. Status post AV fistula revision. Thrill is present. We will follow the patient Objective - Vital Signs/Intake and Output Vital Signs (last 24 hours): Temp Pulse Resp BP Pulse Ox 98.5 F 82 18 116/74 100 01/30/19 04:33 01/30/19 04:33 01/30/19 04:33 01/30/19 04:33 01/30/19 04:33 Intake and Output: 01/29/19 01/30/19 18:59 06:59 Intake Total 620 50 Output Total 200 Balance 620 -150 - Medications Medications: Current Medications Abacavir Sulfate (Ziagen) 300 mg PO BID [facility]; Protocol Last Admin: 01/29/19 17:52 Dose: 300 mg Amlodipine Besylate (Norvasc) 10 mg PO DAILY [facility] Last Admin: 01/29/19 09:48 Dose: 10 mg Cinacalcet (Sensipar) 30 mg PO DAILY [facility] Diphenhydramine HCl (Benadryl) 25 mg PO Q6 PRN PRN Reason: Itching / Pruritus Epoetin Tolu (Procrit) 10,000 unit IV TTS [facility] Last Admin: 01/28/19 11:14 Dose: 10,000 unit Ferric Sodium Gluconate Complex (Ferrlecit) 125 mg IVPB DAILY [facility] Stop: 02/04/19 14:01 Last Admin: 01/29/19 09:47 Dose: 125 mg Fosamprenavir Calcium (Lexiva) 700 mg PO BID [facility]; Protocol Last Admin: 01/29/19 17:52 Dose: 700 mg Cefepime HCl 0.5 gm/ Sodium (Chloride) 50 mls @ 100 mls/hr IVPB Q24H [facility] Last Admin: 01/29/19 21:39 Dose: 100 mls/hr Daptomycin 500 mg/ Sodium (Chloride) 100 mls @ 100 mls/hr IV TTS [facility]; Protocol Stop: 02/02/19 20:01 Last Admin: 01/28/19 19:41 Dose: 100 mls/hr Labetalol HCl (Trandate) 100 mg PO DAILY [facility] Last Admin: 01/29/19 09:49 Dose: 100 mg Lamivudine (Epivir) 100 mg PO DAILY@1800 [facility]; Protocol Last Admin: 01/29/19 17:52 Dose: 100 mg Oxycodone/Acetaminophen (Percocet 5/325 Mg Tab) 1 tab PO Q4H PRN PRN Reason: Pain, moderate (4-7) Stop: 02/01/19 15:07 [facility]; Protocol Last Admin: 01/29/19 17:30 Dose: 100 mg Sennosides (Senokot Tab) 8.6 mg PO BID PRN PRN Reason: Constipation Sevelamer Carbonate (Renvela) 0.8 gm PO TIDCC [facility] Last Admin: 01/29/19 17:52 Dose: 0.8 gm Tramadol HCl (Ultram) 25 mg PO Q8 PRN PRN Reason: pain Last Admin: 01/30/19 01:46 Dose: 25 mg - Labs Labs: 01/29/19 08:28 01/29/19 08:28 PT 11.8 SECONDS (9.7-12.2) 01/29/19 08:28 INR 1.1 01/29/19 08:28 APTT 33.0 SECONDS (21-34) 01/29/19 08:28
--- NOTE | 2019-01-30 06:50 | CP.PCM.PN ---
Subjective - Date & Time of Evaluation Date of Evaluation: 01/30/19 Time of Evaluation: 06:50 - Subjective Subjective: Patient is morning more awake and responding. She is moving the left upper extremity wrist and hand better. Still having some pain in the left elbow and arm region. Possibly she will get the hemodialysis today. She denies any chest pain no shortness of breath leg swelling negative Vital signs noted. Temp Pulse Resp BP Pulse Ox 98.9 F 90 20 107/73 97 01/30/19 07:00 01/30/19 07:03 01/30/19 07:00 01/30/19 07:00 01/30/19 07:00 Chest bilateral good air entry regular heart sounds nontender abdomen no pedal edema Left upper extremity radial pulses not palpable. But warm hands noted Assessment and recognition: 58-year-old female with a history of hypertension high cholesterol and HIV on treatment. Renal insufficiency. Advanced. Currently receiving hemodialysis. Status post AV fistula repair. We will continue with current treatment. Patient will need outpatient hemodialysis set up on the following that the patient will be discharged home Objective - Vital Signs/Intake and Output Vital Signs (last 24 hours): Temp Pulse Resp BP Pulse Ox 98.5 F 82 18 116/74 100 01/30/19 04:33 01/30/19 04:33 01/30/19 04:33 01/30/19 04:33 01/30/19 04:33 Intake and Output: 01/29/19 01/30/19 18:59 06:59 Intake Total 620 50 Output Total 200 Balance 620 -150 - Medications Medications: Current Medications Abacavir Sulfate (Ziagen) 300 mg PO BID [facility]; Protocol Last Admin: 01/29/19 17:52 Dose: 300 mg Amlodipine Besylate (Norvasc) 10 mg PO DAILY [facility] Last Admin: 01/29/19 09:48 Dose: 10 mg Cinacalcet (Sensipar) 30 mg PO DAILY [facility] Diphenhydramine HCl (Benadryl) 25 mg PO Q6 PRN PRN Reason: Itching / Pruritus Epoetin Tolu (Procrit) 10,000 unit IV TTS [facility] Last Admin: 01/28/19 11:14 Dose: 10,000 unit Ferric Sodium Gluconate Complex (Ferrlecit) 125 mg IVPB DAILY [facility] Stop: 02/04/19 14:01 Last Admin: 01/29/19 09:47 Dose: 125 mg Fosamprenavir Calcium (Lexiva) 700 mg PO BID [facility]; Protocol Last Admin: 01/29/19 17:52 Dose: 700 mg Cefepime HCl 0.5 gm/ Sodium (Chloride) 50 mls @ 100 mls/hr IVPB Q24H [facility] Last Admin: 01/29/19 21:39 Dose: 100 mls/hr Daptomycin 500 mg/ Sodium (Chloride) 100 mls @ 100 mls/hr IV TTS [facility]; Protocol Stop: 02/02/19 20:01 Last Admin: 01/28/19 19:41 Dose: 100 mls/hr Labetalol HCl (Trandate) 100 mg PO DAILY [facility] Last Admin: 01/29/19 09:49 Dose: 100 mg Lamivudine (Epivir) 100 mg PO DAILY@1800 [facility]; Protocol Last Admin: 01/29/19 17:52 Dose: 100 mg Oxycodone/Acetaminophen (Percocet 5/325 Mg Tab) 1 tab PO Q4H PRN PRN Reason: Pain, moderate (4-7) Stop: 02/01/19 15:07 Ritonavir (Norvir) 100 mg PO BIDBS [facility]; Protocol Last Admin: 01/29/19 17:30 Dose: 100 mg Sennosides (Senokot Tab) 8.6 mg PO BID PRN PRN Reason: Constipation Sevelamer Carbonate (Renvela) 0.8 gm PO TIDCC [facility] Last Admin: 01/29/19 17:52 Dose: 0.8 gm Tramadol HCl (Ultram) 25 mg PO Q8 PRN PRN Reason: pain Last Admin: 01/30/19 01:46 Dose: 25 mg - Labs Labs: 01/29/19 08:28 01/29/19 08:28 PT 11.8 SECONDS (9.7-12.2) 01/29/19 08:28 INR 1.1 01/29/19 08:28 APTT 33.0 SECONDS (21-34) 01/29/19 08:28
[2019-01-30] MEDS: Sevelamer Carb 0.8 gm/Packet PO SCH ×3 (07:48→17:26)
--- NOTE | 2019-01-30 08:29 | CP.PCM.PN ---
Subjective - Date & Time of Evaluation Date of Evaluation: 01/30/19 Time of Evaluation: 07:30 - Subjective Subjective: Vascular surgery progress note for Dr. Dillon Perez, PGY-2 Pt seen/examined at bedside Pt reports some heaviness and discomfort in her left arm/axilla. Pt is tolerating diet. Denies N & V, F & C, SOB, CP. Objective - Vital Signs/Intake and Output Vital Signs (last 24 hours): Temp Pulse Resp BP Pulse Ox 98.9 F 90 20 107/73 97 01/30/19 07:00 01/30/19 07:03 01/30/19 07:00 01/30/19 07:00 01/30/19 07:00 Intake and Output: 01/30/19 01/30/19 06:59 18:59 Intake Total 50 Output Total 200 Balance -150 - Medications Medications: Current Medications Abacavir Sulfate (Ziagen) 300 mg PO BID [facility]; Protocol Last Admin: 01/29/19 17:52 Dose: 300 mg Amlodipine Besylate (Norvasc) 10 mg PO DAILY [facility] Last Admin: 01/29/19 09:48 Dose: 10 mg Cinacalcet (Sensipar) 30 mg PO DAILY [facility] Diphenhydramine HCl (Benadryl) 25 mg PO Q6 PRN PRN Reason: Itching / Pruritus Epoetin Tolu (Procrit) 10,000 unit IV TTS [facility] Last Admin: 01/28/19 11:14 Dose: 10,000 unit Ferric Sodium Gluconate Complex (Ferrlecit) 125 mg IVPB DAILY [facility] Stop: 02/04/19 14:01 Last Admin: 01/29/19 09:47 Dose: 125 mg Fosamprenavir Calcium (Lexiva) 700 mg PO BID [facility]; Protocol Last Admin: 01/29/19 17:52 Dose: 700 mg Cefepime HCl 0.5 gm/ Sodium (Chloride) 50 mls @ 100 mls/hr IVPB Q24H [facility] Last Admin: 01/29/19 21:39 Dose: 100 mls/hr Daptomycin 500 mg/ Sodium (Chloride) 100 mls @ 100 mls/hr IV TTS [facility]; Protocol Stop: 02/02/19 20:01 Last Admin: 01/28/19 19:41 Dose: 100 mls/hr Labetalol HCl (Trandate) 100 mg PO DAILY [facility] Last Admin: 01/29/19 09:49 Dose: 100 mg Lamivudine (Epivir) 100 mg PO DAILY@1800 [facility]; Protocol Last Admin: 01/29/19 17:52 Dose: 100 mg Oxycodone/Acetaminophen (Percocet 5/325 Mg Tab) 1 tab PO Q4H PRN PRN Reason: Pain, moderate (4-7) Stop: 02/01/19 15:07 Ritonavir (Norvir) 100 mg PO BIDBS [facility]; Protocol Last Admin: 01/30/19 07:48 Dose: 100 mg Sennosides (Senokot Tab) 8.6 mg PO BID PRN PRN Reason: Constipation Sevelamer Carbonate (Renvela) 0.8 gm PO TIDCC [facility] Last Admin: 01/30/19 07:48 Dose: 0.8 gm Tramadol HCl (Ultram) 25 mg PO Q8 PRN PRN Reason: pain Last Admin: 01/30/19 01:46 Dose: 25 mg - Labs Labs: 01/29/19 08:28 01/29/19 08:28 PT 11.8 SECONDS (9.7-12.2) 01/29/19 08:28 INR 1.1 01/29/19 08:28 APTT 33.0 SECONDS (21-34) 01/29/19 08:28 - Constitutional Appears: Non-toxic, No Acute Distress - Head Exam Head Exam: ATRAUMATIC, NORMAL INSPECTION, NORMOCEPHALIC - Eye Exam Eye Exam: EOMI, Normal appearance - ENT Exam ENT Exam: Mucous Membranes Moist, Normal Exam - Neck Exam Neck Exam: Full ROM Additional comments: RIJ permacath in place - Respiratory Exam Respiratory Exam: NORMAL BREATHING PATTERN - Cardiovascular Exam Cardiovascular Exam: REGULAR RHYTHM, +S1, +S2 - GI/Abdominal Exam GI & Abdominal Exam: Soft. absent: Tenderness - Extremities Exam Additional comments: Left upper extremity with dressing in place, palpable thrill over AV shunt. Dressing clean/dry/intact. Radial Artery not palpable, but audible signal present. - Neurological Exam Neurological Exam: Alert, Awake, CN II-XII Intact, Oriented x3 - Psychiatric Exam Psychiatric exam: Normal Affect, Normal Mood - Skin Skin Exam: Dry, Intact, Normal Color, Warm Assessment and Plan - Assessment and Plan (Free Text) Assessment: 58F w/ESRD On HD with failed LUE AVF POD#1 s/p LUE AV shunt creation with audible signals, no palpable radial pulse on LUE Plan: Left upper extremity arm precautions- no to be used for blood draws or IVs Pt to follow up with Dr. Ruiz in the office a week after discharge from hospital Keep dressing in place until seen & evaluated by Dr. Ruiz ok to move arm Pain control as needed No further surgical intervention at this time Further care as per primary team Will DW Dr. Joseph Perez, PGY-2
--- NOTE | 2019-01-30 09:15 | CP.PCM.PN ---
Subjective - Date & Time of Evaluation Date of Evaluation: 01/30/19 Time of Evaluation: 09:12 - Subjective Subjective: pt seen and examined eating breakfast no SOB no arm pain no CP no other complaints ROS- as per HPI, other than that 10 point ROS negative Objective - Vital Signs/Intake and Output Vital Signs (last 24 hours): Temp Pulse Resp BP Pulse Ox 98.9 F 90 20 107/73 97 01/30/19 07:00 01/30/19 07:03 01/30/19 07:00 01/30/19 07:00 01/30/19 07:00 Intake and Output: 01/30/19 01/30/19 06:59 18:59 Intake Total 50 Output Total 200 Balance -150 - Medications Medications: Current Medications Abacavir Sulfate (Ziagen) 300 mg PO BID [facility]; Protocol Last Admin: 01/29/19 17:52 Dose: 300 mg Amlodipine Besylate (Norvasc) 10 mg PO DAILY [facility] Last Admin: 01/29/19 09:48 Dose: 10 mg Cinacalcet (Sensipar) 30 mg PO DAILY [facility] Diphenhydramine HCl (Benadryl) 25 mg PO Q6 PRN PRN Reason: Itching / Pruritus Epoetin Tolu (Procrit) 10,000 unit IV TTS [facility] Last Admin: 01/28/19 11:14 Dose: 10,000 unit Ferric Sodium Gluconate Complex (Ferrlecit) 125 mg IVPB DAILY [facility] Stop: 02/04/19 14:01 Last Admin: 01/29/19 09:47 Dose: 125 mg Fosamprenavir Calcium (Lexiva) 700 mg PO BID [facility]; Protocol Last Admin: 01/29/19 17:52 Dose: 700 mg Cefepime HCl 0.5 gm/ Sodium (Chloride) 50 mls @ 100 mls/hr IVPB Q24H [facility] Last Admin: 01/29/19 21:39 Dose: 100 mls/hr Daptomycin 500 mg/ Sodium (Chloride) 100 mls @ 100 mls/hr IV TTS [facility]; Protocol Stop: 02/02/19 20:01 Last Admin: 01/28/19 19:41 Dose: 100 mls/hr Labetalol HCl (Trandate) 100 mg PO DAILY [facility] Last Admin: 01/29/19 09:49 Dose: 100 mg Lamivudine (Epivir) 100 mg PO DAILY@1800 [facility]; Protocol Last Admin: 01/29/19 17:52 Dose: 100 mg Oxycodone/Acetaminophen (Percocet 5/325 Mg Tab) 1 tab PO Q4H PRN PRN Reason: Pain, moderate (4-7) Stop: 02/01/19 15:07 Ritonavir (Norvir) 100 mg PO BIDBS [facility]; Protocol Last Admin: 01/30/19 07:48 Dose: 100 mg Sennosides (Senokot Tab) 8.6 mg PO BID PRN PRN Reason: Constipation Sevelamer Carbonate (Renvela) 0.8 gm PO TIDCC [facility] Last Admin: 01/30/19 07:48 Dose: 0.8 gm Tramadol HCl (Ultram) 25 mg PO Q8 PRN PRN Reason: pain Last Admin: 01/30/19 01:46 Dose: 25 mg - Labs Labs: 01/29/19 08:28 01/29/19 08:28 PT 11.8 SECONDS (9.7-12.2) 01/29/19 08:28 INR 1.1 01/29/19 08:28 APTT 33.0 SECONDS (21-34) 01/29/19 08:28 - Constitutional Appears: Well, Non-toxic - Head Exam Head Exam: ATRAUMATIC, NORMOCEPHALIC - Eye Exam Eye Exam: EOMI, PERRL - ENT Exam ENT Exam: Mucous Membranes Moist - Neck Exam Neck Exam: Full ROM. absent: Lymphadenopathy - Respiratory Exam Respiratory Exam: Clear to Ausculation Bilateral. absent: Rhonchi, Wheezes - Cardiovascular Exam Cardiovascular Exam: REGULAR RHYTHM, +S1, +S2 - GI/Abdominal Exam GI & Abdominal Exam: Soft. absent: Tenderness - Extremities Exam Extremities Exam: Full ROM. absent: Pedal Edema Additional comments: LUE av fistula - dressing in place - Neurological Exam Neurological Exam: Alert, Awake, Oriented x3 - Psychiatric Exam Psychiatric exam: Normal Affect, Normal Mood - Skin Skin Exam: Normal Color, Warm Assessment and Plan (1) Complication of vascular access for dialysis Status: Acute (2) ESRD (end stage renal disease) Status: Acute (3) HIV (human immunodeficiency virus infection) Status: Acute (4) Hypertension Status: Acute - Assessment and Plan (Free Text) Plan: HD today then MWF schedule Bp stable vascular follow up had out pt hd unit [facility]
[2019-01-30] MEDS: Ferric Sodium Gluconat Complex 62.5 mg/5 ml Vial IVPB SCH ×2 (10:09→11:15)
[2019-01-30] MEDS: DAPTOmycin 500 MG in Sodium Chloride 0.9% 100 ML IV SCH (10:09)
[2019-01-30] MEDS: Epoetin Alfa 10,000 unit/ml Dialysis IV SCH ×2 (10:10→11:14)
[2019-01-30 10:45] LABS: HEMOGLOBIN 7.7 g/dL (11.0-16.0); MEAN CELL VOLUME 83.8 fL (81.0-99.0); MEAN CORPUSCULAR HEMOGLOBIN 27.9 pg (27.0-31.0); MEAN CORPUSCULAR HGB CONC 33.3 g/dL (33.0-37.0); MEAN PLATELET VOLUME 7.9 fL (7.2-11.7); RBC 2.78 Mil/uL (3.80-5.20); RED CELL DISTRIBUTION WIDTH 14.6 % (11.5-14.5); WHITE BLOOD COUNT 9.5 K/uL (4.8-10.8)
[2019-01-30 11:05] LABS: ALB/GLOB RATIO 1.3 (1.0-2.1); ALBUMIN 3.7 g/dL (3.5-5.0)
[2019-01-30] MEDS: LamiVUDine 10 mg/ml Syringe PO SCH (17:25)
[2019-01-31] MEDS: Sevelamer Carb 0.8 gm/Packet PO SCH ×3 (08:16→16:36)
[2019-01-31] MEDS: Tramadol 25 mg PO PRN (09:08)
[2019-01-31] MEDS: Ferric Sodium Gluconat Complex 62.5 mg/5 ml Vial IVPB SCH (09:13)
[2019-01-31] MEDS: LamiVUDine 10 mg/ml Syringe PO SCH (17:56)
--- NOTE | 2019-01-31 19:38 | OP ---
PROCEDURE DATE: 01/29/2019 PREOPERATIVE DIAGNOSIS: Renal failure. POSTOPERATIVE DIAGNOSIS: Renal failure. PROCEDURE: AV shunt left upper arm, placed on the proximal brachial artery and basilic vein. SURGEON: Michael Ruiz Jr., MD ASSIGNMENT DESK EDITOR: Juventino Jack DO ANESTHESIOLOGIST: Dr. Putnam. INDICATIONS: The patient is a 58-year-old woman who has a variety of other medical problems, just starting on dialysis. She previously had a fistula created in the left arm recently a week ago which was supposedly opened but presented with acute closure. OPERATIVE FINDINGS: Because of the patient's dye allergy, we placed a Bovine graft avoiding the need for dye associated with a hybrid shunt. At the end of the procedure, there was a diminished pulse of the left wrist but there were excellent Doppler signals in both the radial and ulnar arteries, and there was good pulse oximetry tracing in the fingers. DESCRIPTION OF PROCEDURE: The patient was given general anesthesia and intravenous antibiotics. The veins and arteries were mapped. There were no available surface veins and the basilic vein in the mid-portion in the ulnar crease had clotted. We dissected out the basilic vein at the axilla and this was of adequate size and caliber, and we dissected out the brachial artery adjacent to this. Additionally, we dissected out the brachial artery at the elbow but this was quite small, and there was concern regarding the possibility of steal syndrome. We then created an upper arm loop. Our graft was a little short so we had to revise this to accommodate for its short length. We then anastomosed this in an end-to-side fashion to the artery and vein. At the end of the procedure, there was excellent flow. As I said, there was a diminished pulse at the wrist but there were still excellent Doppler signals and pulse oximetry tracings. Heparin was used which was not reversed and looped magnification was used in the anastomoses. Blood loss during the procedure was less than 100 mL. Operation carried out, AV shunt left upper arm, loop configuration. Michael Ruiz Jr., MD cc: MD Yeimi Tomlin MD Spartaco Bellomo, MD [facility] # [id number]
--- NOTE | 2019-01-31 23:24 | CP.PCM.PN ---
Subjective - Date & Time of Evaluation Date of Evaluation: 01/29/19 Time of Evaluation: 23:21 - Subjective Subjective: INFECTIOUS DISEASE PROGRESS NOTES FRED ABAD MD, FACP 6T 660-A 01/29/2019 CHART REVIEWED PT EXAMINED CASE DISCUSSED for new AV fistula TODAY stable dialysis so far, dizzy at times Ca elevated still, PTH elevated- CONTINUE ANTIBIOTICS BP controlled Objective - Vital Signs/Intake and Output Vital Signs (last 24 hours): Temp Pulse Resp BP Pulse Ox 98.1 F 71 20 147/92 H 96 01/29/19 07:00 01/29/19 07:09 01/29/19 07:00 01/29/19 07:00 01/29/19 07:00 Intake and Output: 01/29/19 01/29/19 06:59 18:59 Intake Total 150 0 Balance 150 0 - Medications Medications: Current Medications Abacavir Sulfate (Ziagen) 300 mg PO BID [facility]; Protocol Last Admin: 01/29/19 09:49 Dose: 300 mg Amlodipine Besylate (Norvasc) 10 mg PO DAILY [facility] Last Admin: 01/29/19 09:48 Dose: 10 mg Diphenhydramine HCl (Benadryl) 25 mg PO Q6 PRN PRN Reason: Itching / Pruritus Epoetin Tolu (Procrit) 10,000 unit IV TTS [facility] Last Admin: 01/28/19 11:14 Dose: 10,000 unit Ferric Sodium Gluconate Complex (Ferrlecit) 125 mg IVPB DAILY [facility] Stop: 02/04/19 14:01 Last Admin: 01/29/19 09:47 Dose: 125 mg Fosamprenavir Calcium (Lexiva) 700 mg PO BID [facility]; Protocol Last Admin: 01/29/19 09:50 Dose: 700 mg Cefepime HCl 0.5 gm/ Sodium (Chloride) 50 mls @ 100 mls/hr IVPB Q24H [facility] Last Admin: 01/28/19 19:59 Dose: 100 mls/hr Daptomycin 500 mg/ Sodium (Chloride) 100 mls @ 100 mls/hr IV TTS [facility]; Protocol Stop: 02/02/19 20:01 Last Admin: 01/28/19 19:41 Dose: 100 mls/hr Labetalol HCl (Trandate) 100 mg PO DAILY [facility] Last Admin: 01/29/19 09:49 Dose: 100 mg Lamivudine (Epivir) 100 mg PO DAILY@1800 [facility]; Protocol Last Admin: 01/28/19 17:55 Dose: 100 mg Ritonavir (Norvir) 100 mg PO BIDBS [facility]; Protocol Last Admin: 01/29/19 08:03 Dose: 100 mg Sennosides (Senokot Tab) 8.6 mg PO BID PRN PRN Reason: Constipation Sevelamer Carbonate (Renvela) 0.8 gm PO TIDCC [facility] Last Admin: 01/29/19 11:50 Dose: Not Given Tramadol HCl (Ultram) 25 mg PO Q8 PRN PRN Reason: pain Last Admin: 01/26/19 19:09 Dose: 25 mg - Labs Labs: 01/29/19 08:28 01/29/19 08:28 PT 11.8 SECONDS (9.7-12.2) 01/29/19 08:28 INR 1.1 01/29/19 08:28 APTT 33.0 SECONDS (21-34) 01/29/19 08:28 - Constitutional Appears: No Acute Distress, Chronically Ill - Head Exam Head Exam: ATRAUMATIC, NORMAL INSPECTION - Eye Exam Eye Exam: EOMI, Normal appearance - Neck Exam Neck Exam: Normal Inspection. absent: Tenderness - Respiratory Exam Respiratory Exam: Clear to Ausculation Bilateral, NORMAL BREATHING PATTERN - Cardiovascular Exam Cardiovascular Exam: REGULAR RHYTHM, +S1 - GI/Abdominal Exam GI & Abdominal Exam: Soft. absent: Tenderness - Extremities Exam Extremities Exam: Normal Inspection. absent: Tenderness - Neurological Exam Neurological Exam: Awake, CN II-XII Intact - Skin Skin Exam: Dry, Warm Assessment and Plan (1) Arteriovenous fistula thrombosis Status: Acute (2) HIV (human immunodeficiency virus infection) Status: Acute (3) Chronic kidney disease, stage V Status: Acute (4) HIV-associated nephropathy Status: Acute (5) Complication of vascular access for dialysis Status: Acute (6) Hypertensive chronic kidney disease with stage 5 chronic kidney disease or end stage renal disease Status: Acute (7) Hypercalcemia Status: Acute (8) ESRD (end stage renal disease) Status: Acute - Assessment and Plan (Free Text) Plan: dialysis in AM, again 5/6 monitor AV access post surgery Objective - Vital Signs/Intake and Output Vital Signs (last 24 hours): Temp Pulse Resp BP Pulse Ox 98.7 F 85 20 115/75 95 01/31/19 16:44 01/31/19 20:17 01/31/19 16:44 01/31/19 16:44 01/31/19 16:44 Intake and Output: 01/31/19 02/01/19 18:59 06:59 Intake Total 400 Balance 400 - Medications Medications: Current Medications Abacavir Sulfate (Ziagen) 300 mg PO BID [facility]; Protocol Last Admin: 01/31/19 17:55 Dose: 300 mg Amlodipine Besylate (Norvasc) 10 mg PO DAILY [facility] Last Admin: 01/31/19 09:13 Dose: 10 mg Cinacalcet (Sensipar) 30 mg PO DAILY [facility] Last Admin: 01/31/19 09:57 Dose: 30 mg Diphenhydramine HCl (Benadryl) 25 mg PO Q6 PRN PRN Reason: Itching / Pruritus Epoetin Tolu (Procrit) 10,000 unit IV TTS [facility] Last Admin: 01/30/19 11:14 Dose: 10,000 unit Ferric Sodium Gluconate Complex (Ferrlecit) 125 mg IVPB DAILY [facility] Stop: 02/04/19 14:01 Last Admin: 01/31/19 09:13 Dose: 125 mg Fosamprenavir Calcium (Lexiva) 700 mg PO BID [facility]; Protocol Last Admin: 01/31/19 17:55 Dose: 700 mg Daptomycin 500 mg/ Sodium (Chloride) 100 mls @ 100 mls/hr IV TTS [facility]; Protocol Stop: 02/02/19 20:01 Last Admin: 01/30/19 10:09 Dose: Not Given Labetalol HCl (Trandate) 100 mg PO DAILY [facility] Last Admin: 01/31/19 09:14 Dose: 100 mg Lamivudine (Epivir) 100 mg PO DAILY@1800 [facility]; Protocol Last Admin: 01/31/19 17:56 Dose: 100 mg Oxycodone/Acetaminophen (Percocet 5/325 Mg Tab) 1 tab PO Q4H PRN PRN Reason: Pain, moderate (4-7) Stop: 02/01/19 15:07 Ritonavir (Norvir) 100 mg PO BIDBS [facility]; Protocol Last Admin: 01/31/19 16:36 Dose: 100 mg Sennosides (Senokot Tab) 8.6 mg PO BID PRN PRN Reason: Constipation Last Admin: 01/30/19 22:09 Dose: 8.6 mg Sevelamer Carbonate (Renvela) 0.8 gm PO TIDCC [facility] Last Admin: 01/31/19 16:36 Dose: 0.8 gm Tramadol HCl (Ultram) 25 mg PO Q8 PRN PRN Reason: pain Last Admin: 01/31/19 09:08 Dose: 25 mg - Labs Labs: 01/30/19 10:25 01/30/19 10:25 PT 11.8 SECONDS (9.7-12.2) 01/29/19 08:28 INR 1.1 01/29/19 08:28 APTT 33.0 SECONDS (21-34) 01/29/19 08:28
--- NOTE | 2019-01-31 23:38 | CP.PCM.PN ---
Subjective - Date & Time of Evaluation Date of Evaluation: 01/31/19 Time of Evaluation: 11:00 - Subjective Subjective: INFECTIOUS DISEASE PROGRESS NOTES FRED ABAD MD, FACP 6T 660-A 01/31/2019 CHART REVIEWED PT EXAMINED CASE DISCUSSED Patient underwent surgical procedure- revascularization of the AV fistula left upper extremity. Patient did very well with the procedure. ONLY POST OP pain. SOME difficultY in moving the left upper extremity. Clinical examination is unremarkable except the patient is feeling sleepy and drowsy. We will continue the current treatment. Possible hemodialysis tomorrow. Status post AV fistula revision. Thrill is present. Objective - Vital Signs/Intake and Output Vital Signs (last 24 hours): Temp Pulse Resp BP Pulse Ox 98.5 F 82 18 116/74 100 01/30/19 04:33 01/30/19 04:33 01/30/19 04:33 01/30/19 04:33 01/30/19 04:33 Intake and Output: 01/29/19 01/30/19 18:59 06:59 Intake Total 620 50 Output Total 200 Balance 620 -150 - Medications Medications: Current Medications Abacavir Sulfate (Ziagen) 300 mg PO BID [facility]; Protocol Last Admin: 01/29/19 17:52 Dose: 300 mg Amlodipine Besylate (Norvasc) 10 mg PO DAILY [facility] Last Admin: 01/29/19 09:48 Dose: 10 mg Cinacalcet (Sensipar) 30 mg PO DAILY [facility] Diphenhydramine HCl (Benadryl) 25 mg PO Q6 PRN PRN Reason: Itching / Pruritus Epoetin Otlu (Procrit) 10,000 unit IV TTS [facility] Last Admin: 01/28/19 11:14 Dose: 10,000 unit Ferric Sodium Gluconate Complex (Ferrlecit) 125 mg IVPB DAILY [facility] Stop: 02/04/19 14:01 Last Admin: 01/29/19 09:47 Dose: 125 mg Fosamprenavir Calcium (Lexiva) 700 mg PO BID [facility]; Protocol Last Admin: 01/29/19 17:52 Dose: 700 mg Cefepime HCl 0.5 gm/ Sodium (Chloride) 50 mls @ 100 mls/hr IVPB Q24H [facility] Last Admin: 01/29/19 21:39 Dose: 100 mls/hr Daptomycin 500 mg/ Sodium (Chloride) 100 mls @ 100 mls/hr IV TTS [facility]; Protocol Stop: 02/02/19 20:01 Last Admin: 01/28/19 19:41 Dose: 100 mls/hr Labetalol HCl (Trandate) 100 mg PO DAILY [facility] Last Admin: 01/29/19 09:49 Dose: 100 mg Lamivudine (Epivir) 100 mg PO DAILY@1800 [facility]; Protocol Last Admin: 01/29/19 17:52 Dose: 100 mg Oxycodone/Acetaminophen (Percocet 5/325 Mg Tab) 1 tab PO Q4H PRN PRN Reason: Pain, moderate (4-7) Stop: 02/01/19 15:07 Ritonavir (Norvir) 100 mg PO BIDBS [facility]; Protocol Last Admin: 01/29/19 17:30 Dose: 100 mg Sennosides (Senokot Tab) 8.6 mg PO BID PRN PRN Reason: Constipation Sevelamer Carbonate (Renvela) 0.8 gm PO TIDCC [facility] Last Admin: 01/29/19 17:52 Dose: 0.8 gm Tramadol HCl (Ultram) 25 mg PO Q8 PRN PRN Reason: pain Last Admin: 01/30/19 01:46 Dose: 25 mg Objective - Vital Signs/Intake and Output Vital Signs (last 24 hours): Temp Pulse Resp BP Pulse Ox 98.7 F 85 20 115/75 95 01/31/19 16:44 01/31/19 20:17 01/31/19 16:44 01/31/19 16:44 01/31/19 16:44 Intake and Output: 01/31/19 02/01/19 18:59 06:59 Intake Total 400 Balance 400 - Medications Medications: Current Medications Abacavir Sulfate (Ziagen) 300 mg PO BID [facility]; Protocol Last Admin: 01/31/19 17:55 Dose: 300 mg Amlodipine Besylate (Norvasc) 10 mg PO DAILY [facility] Last Admin: 01/31/19 09:13 Dose: 10 mg Cinacalcet (Sensipar) 30 mg PO DAILY [facility] Last Admin: 01/31/19 09:57 Dose: 30 mg Diphenhydramine HCl (Benadryl) 25 mg PO Q6 PRN PRN Reason: Itching / Pruritus Epoetin Tolu (Procrit) 10,000 unit IV TTS [facility] Last Admin: 01/30/19 11:14 Dose: 10,000 unit Ferric Sodium Gluconate Complex (Ferrlecit) 125 mg IVPB DAILY [facility] Stop: 02/04/19 14:01 Last Admin: 01/31/19 09:13 Dose: 125 mg Fosamprenavir Calcium (Lexiva) 700 mg PO BID [facility]; Protocol Last Admin: 01/31/19 17:55 Dose: 700 mg Daptomycin 500 mg/ Sodium (Chloride) 100 mls @ 100 mls/hr IV TTS [facility]; Protocol Stop: 02/02/19 20:01 Last Admin: 01/30/19 10:09 Dose: Not Given Labetalol HCl (Trandate) 100 mg PO DAILY [facility] Last Admin: 01/31/19 09:14 Dose: 100 mg Lamivudine (Epivir) 100 mg PO DAILY@1800 [facility]; Protocol Last Admin: 01/31/19 17:56 Dose: 100 mg Oxycodone/Acetaminophen (Percocet 5/325 Mg Tab) 1 tab PO Q4H PRN PRN Reason: Pain, moderate (4-7) Stop: 02/01/19 15:07 Ritonavir (Norvir) 100 mg PO BIDBS [facility]; Protocol Last Admin: 01/31/19 16:36 Dose: 100 mg Sennosides (Senokot Tab) 8.6 mg PO BID PRN PRN Reason: Constipation Last Admin: 01/30/19 22:09 Dose: 8.6 mg Sevelamer Carbonate (Renvela) 0.8 gm PO TIDCC [facility] Last Admin: 01/31/19 16:36 Dose: 0.8 gm Tramadol HCl (Ultram) 25 mg PO Q8 PRN PRN Reason: pain Last Admin: 01/31/19 09:08 Dose: 25 mg - Labs Labs: 01/30/19 10:25 01/30/19 10:25 PT 11.8 SECONDS (9.7-12.2) 01/29/19 08:28 INR 1.1 01/29/19 08:28 APTT 33.0 SECONDS (21-34) 01/29/19 08:28
[2019-02-01] MEDS: Sevelamer Carb 0.8 gm/Packet PO SCH ×4 (08:19→17:24)
[2019-02-01] MEDS ORDERED: Epoetin Alfa 10,000 unit/ml Dialysis IV SCH (10:00)
[2019-02-01] MEDS: Ferric Sodium Gluconat Complex 62.5 mg/5 ml Vial IVPB SCH (10:01)
--- NOTE | 2019-02-01 11:53 | CP.PCM.PN ---
Subjective - Date & Time of Evaluation Date of Evaluation: 02/01/19 Time of Evaluation: 11:51 - Subjective Subjective: seen on dialysis , HD ongoing UF gaol 2 L Bp stable no CP or SOB no other complaints ROS- as per HPI, other than that 10 point ROS negative Objective - Vital Signs/Intake and Output Vital Signs (last 24 hours): Temp Pulse Resp BP Pulse Ox 97.4 F L 91 H 18 140/84 97 02/01/19 09:15 02/01/19 09:15 02/01/19 09:15 02/01/19 10:45 02/01/19 09:15 - Medications Medications: Current Medications Amlodipine Besylate (Norvasc) 10 mg PO DAILY [facility] Last Admin: 01/31/19 09:13 Dose: 10 mg Cinacalcet (Sensipar) 30 mg PO DAILY [facility] Last Admin: 01/31/19 09:57 Dose: 30 mg Diphenhydramine HCl (Benadryl) 25 mg PO Q6 PRN PRN Reason: Itching / Pruritus Epoetin Tolu (Procrit) 10,000 unit IV MWF [facility] Last Admin: 02/01/19 10:01 Dose: 10,000 unit Ferric Sodium Gluconate Complex (Ferrlecit) 125 mg IVPB DAILY [facility] Stop: 02/04/19 14:01 Last Admin: 02/01/19 10:01 Dose: 125 mg Daptomycin 500 mg/ Sodium (Chloride) 100 mls @ 100 mls/hr IV TTS [facility]; Protocol Stop: 02/02/19 20:01 Last Admin: 01/30/19 10:09 Dose: Not Given Labetalol HCl (Trandate) 100 mg PO DAILY [facility] Last Admin: 01/31/19 09:14 Dose: 100 mg Lamivudine (Epivir) 100 mg PO DAILY@1800 [facility]; Protocol Last Admin: 01/31/19 17:56 Dose: 100 mg Oxycodone/Acetaminophen (Percocet 5/325 Mg Tab) 1 tab PO Q4H PRN PRN Reason: Pain, moderate (4-7) Stop: 02/01/19 15:07 Last Admin: 01/31/19 23:52 Dose: 1 tab Sennosides (Senokot Tab) 8.6 mg PO BID PRN PRN Reason: Constipation Last Admin: 01/30/19 22:09 Dose: 8.6 mg Sevelamer Carbonate (Renvela) 0.8 gm PO TIDCC [facility] Last Admin: 02/01/19 08:19 Dose: 0.8 gm Tramadol HCl (Ultram) 25 mg PO Q8 PRN PRN Reason: pain Last Admin: 01/31/19 09:08 Dose: 25 mg - Labs Labs: 01/30/19 10:25 01/30/19 10:25 PT 11.8 SECONDS (9.7-12.2) 01/29/19 08:28 INR 1.1 01/29/19 08:28 APTT 33.0 SECONDS (21-34) 01/29/19 08:28 - Constitutional Appears: Well, Non-toxic - Head Exam Head Exam: ATRAUMATIC, NORMOCEPHALIC - Eye Exam Eye Exam: EOMI, PERRL - ENT Exam ENT Exam: Mucous Membranes Moist - Neck Exam Neck Exam: Full ROM - Respiratory Exam Respiratory Exam: Clear to Ausculation Bilateral. absent: Rhonchi, Wheezes - Cardiovascular Exam Cardiovascular Exam: REGULAR RHYTHM, +S1, +S2 - GI/Abdominal Exam GI & Abdominal Exam: Soft. absent: Tenderness - Extremities Exam Extremities Exam: Full ROM. absent: Pedal Edema - Neurological Exam Neurological Exam: Alert, Awake, Oriented x3 - Psychiatric Exam Psychiatric exam: Normal Affect, Normal Mood - Skin Skin Exam: Dry, Intact Assessment and Plan (1) Complication of vascular access for dialysis Status: Acute (2) ESRD (end stage renal disease) Status: Acute (3) HIV (human immunodeficiency virus infection) Status: Acute (4) Hypertension Status: Acute - Assessment and Plan (Free Text) Plan: HD Today BP stable on venofer and epogen for anemia vascular follow up stable renal bolivar for discharge
--- NOTE | 2019-02-01 16:53 | CP.PCM.PN ---
Subjective - Date & Time of Evaluation Date of Evaluation: 02/01/19 Time of Evaluation: 16:47 - Subjective Subjective: INFECTIOUS DISEASE PROGRESS NOTES FRED ABAD MD, FACP 6T 660-A 02/01/2019 CHART REVIEWED PT EXAMINED CASE DISCUSSED WITH PT AND DR PAULSON OF NOTE: C/S FROM HER 5TH FINGER TIP GREW STAPH AUREUS, MSSA! D/C CUBICIN AND START KEFLEX 500MG PO DAILY. VLINICALLY STABLE LEFT ARM IS SOFT AND TRILL IS POSITIVE LEFT AV FISTULA EATING AND TOLERATING DIALYSIS Bp stable no CP or SOB no other complaints ROS- as per HPI, other than that 10 point ROS negative Objective - Vital Signs/Intake and Output Vital Signs (last 24 hours): Temp Pulse Resp BP Pulse Ox 97.4 F L 91 H 18 140/84 97 02/01/19 09:15 02/01/19 09:15 02/01/19 09:15 02/01/19 10:45 02/01/19 09:15 - Medications Medications: Current Medications Amlodipine Besylate (Norvasc) 10 mg PO DAILY [facility] Last Admin: 01/31/19 09:13 Dose: 10 mg Cinacalcet (Sensipar) 30 mg PO DAILY [facility] Last Admin: 01/31/19 09:57 Dose: 30 mg Diphenhydramine HCl (Benadryl) 25 mg PO Q6 PRN PRN Reason: Itching / Pruritus Epoetin Tolu (Procrit) 10,000 unit IV MWF [facility] Last Admin: 02/01/19 10:01 Dose: 10,000 unit Ferric Sodium Gluconate Complex (Ferrlecit) 125 mg IVPB DAILY [facility] Stop: 02/04/19 14:01 Last Admin: 02/01/19 10:01 Dose: 125 mg Daptomycin 500 mg/ Sodium (Chloride) 100 mls @ 100 mls/hr IV TTS [facility]; Protocol Stop: 02/02/19 20:01 Last Admin: 01/30/19 10:09 Dose: Not Given Labetalol HCl (Trandate) 100 mg PO DAILY [facility] Last Admin: 01/31/19 09:14 Dose: 100 mg Lamivudine (Epivir) 100 mg PO DAILY@1800 [facility]; Protocol Last Admin: 01/31/19 17:56 Dose: 100 mg Oxycodone/Acetaminophen (Percocet 5/325 Mg Tab) 1 tab PO Q4H PRN PRN Reason: Pain, moderate (4-7) Stop: 02/01/19 15:07 Last Admin: 01/31/19 23:52 Dose: 1 tab Sennosides (Senokot Tab) 8.6 mg PO BID PRN PRN Reason: Constipation Last Admin: 01/30/19 22:09 Dose: 8.6 mg Sevelamer Carbonate (Renvela) 0.8 gm PO TIDCC [facility] Last Admin: 02/01/19 08:19 Dose: 0.8 gm Tramadol HCl (Ultram) 25 mg PO Q8 PRN PRN Reason: pain Last Admin: 01/31/19 09:08 Dose: 25 mg - Labs Labs: 01/30/19 10:25 01/30/19 10:25 PT 11.8 SECONDS (9.7-12.2) 01/29/19 08:28 INR 1.1 01/29/19 08:28 APTT 33.0 SECONDS (21-34) 01/29/19 08:28 - Constitutional Appears: Well, Non-toxic - Head Exam Head Exam: ATRAUMATIC, NORMOCEPHALIC - Eye Exam Eye Exam: EOMI, PERRL - ENT Exam ENT Exam: Mucous Membranes Moist - Neck Exam Neck Exam: Full ROM - Respiratory Exam Respiratory Exam: Clear to Ausculation Bilateral. absent: Rhonchi, Wheezes - Cardiovascular Exam Cardiovascular Exam: REGULAR RHYTHM, +S1, +S2 - GI/Abdominal Exam GI & Abdominal Exam: Soft. absent: Tenderness - Extremities Exam Extremities Exam: Full ROM. absent: Pedal Edema - Neurological Exam Neurological Exam: Alert, Awake, Oriented x3 - Psychiatric Exam Psychiatric exam: Normal Affect, Normal Mood - Skin Skin Exam: Dry, Intact Assessment and Plan (1) Complication of vascular access for dialysis Status: Acute (2) ESRD (end stage renal disease) Status: Acute (3) HIV (human immunodeficiency virus infection) Status: Acute (4) Hypertension Status: Acute - Assessment and Plan (Free Text) Plan: HD Today BP stable on venofer and epogen for anemia vascular follow up PT IS STABLE TO BE MANAGED BY RENAL/VASCULAR AND MYSELF MARI ZHAO. SHE HAS BEEN MY PATIENT NOW FOR OVER 30 YEARS. THANK YOU FOR THE TEAM APPROACH AND THE DIRECT INTERACTIVE MANAGEMENT. FRED ABAD MD, FACP. Objective - Vital Signs/Intake and Output Vital Signs (last 24 hours): Temp Pulse Resp BP Pulse Ox 98.1 F 88 16 159/99 H 98 02/01/19 12:45 02/01/19 15:15 02/01/19 12:45 02/01/19 12:45 02/01/19 12:45 - Medications Medications: Current Medications Amlodipine Besylate (Norvasc) 10 mg PO DAILY [facility] Last Admin: 02/01/19 10:00 Dose: Not Given Cephalexin Monohydrate (Keflex) 500 mg PO DAILY [facility]; Protocol Cinacalcet (Sensipar) 30 mg PO DAILY [facility] Last Admin: 02/01/19 10:00 Dose: Not Given Diphenhydramine HCl (Benadryl) 25 mg PO Q6 PRN PRN Reason: Itching / Pruritus Epoetin Tolu (Procrit) 10,000 unit IV MWF [facility] Last Admin: 02/01/19 10:01 Dose: 10,000 unit Ferric Sodium Gluconate Complex (Ferrlecit) 125 mg IVPB DAILY [facility] Stop: 02/04/19 14:01 Last Admin: 02/01/19 10:01 Dose: 125 mg Labetalol HCl (Trandate) 100 mg PO DAILY [facility] Last Admin: 02/01/19 10:00 Dose: Not Given Lamivudine (Epivir) 100 mg PO DAILY@1800 [facility]; Protocol Last Admin: 01/31/19 17:56 Dose: 100 mg Sennosides (Senokot Tab) 8.6 mg PO BID PRN PRN Reason: Constipation Last Admin: 01/30/19 22:09 Dose: 8.6 mg Sevelamer Carbonate (Renvela) 0.8 gm PO TIDCC [facility] Last Admin: 02/01/19 12:11 Dose: Not Given Tramadol HCl (Ultram) 25 mg PO Q8 PRN PRN Reason: pain Last Admin: 01/31/19 09:08 Dose: 25 mg - Labs Labs: 01/30/19 10:25 01/30/19 10:25 PT 11.8 SECONDS (9.7-12.2) 01/29/19 08:28 INR 1.1 01/29/19 08:28 APTT 33.0 SECONDS (21-34) 01/29/19 08:28
[2019-02-01 16:56] VITALS: RESP 20; O2SAT 99
[2019-02-01] MEDS: LamiVUDine 10 mg/ml Syringe PO SCH (17:24)
--- NOTE | 2019-02-01 17:54 | CP.PCM.PN ---
Subjective - Date & Time of Evaluation Date of Evaluation: 02/01/19 Time of Evaluation: 17:54 Objective - Vital Signs/Intake and Output Vital Signs (last 24 hours): Temp Pulse Resp BP Pulse Ox 98.1 F 77 20 159/79 H 99 02/01/19 15:30 02/01/19 15:30 02/01/19 15:30 02/01/19 15:30 02/01/19 15:30 - Medications Medications: Current Medications Amlodipine Besylate (Norvasc) 10 mg PO DAILY [facility] Last Admin: 02/01/19 10:00 Dose: Not Given Cephalexin Monohydrate (Keflex) 500 mg PO DAILY [facility]; Protocol Cinacalcet (Sensipar) 30 mg PO DAILY [facility] Last Admin: 02/01/19 10:00 Dose: Not Given Diphenhydramine HCl (Benadryl) 25 mg PO Q6 PRN PRN Reason: Itching / Pruritus Epoetin Tolu (Procrit) 10,000 unit IV MWF [facility] Last Admin: 02/01/19 10:01 Dose: 10,000 unit Ferric Sodium Gluconate Complex (Ferrlecit) 125 mg IVPB DAILY [facility] Stop: 02/04/19 14:01 Last Admin: 02/01/19 10:01 Dose: 125 mg Labetalol HCl (Trandate) 100 mg PO DAILY [facility] Last Admin: 02/01/19 10:00 Dose: Not Given Lamivudine (Epivir) 100 mg PO DAILY@1800 [facility]; Protocol Last Admin: 02/01/19 17:24 Dose: 100 mg Sennosides (Senokot Tab) 8.6 mg PO BID PRN PRN Reason: Constipation Last Admin: 01/30/19 22:09 Dose: 8.6 mg Sevelamer Carbonate (Renvela) 0.8 gm PO TIDCC [facility] Last Admin: 02/01/19 17:24 Dose: 0.8 gm Tramadol HCl (Ultram) 25 mg PO Q8 PRN PRN Reason: pain Last Admin: 01/31/19 09:08 Dose: 25 mg - Labs Labs: 01/30/19 10:25 01/30/19 10:25 PT 11.8 SECONDS (9.7-12.2) 01/29/19 08:28 INR 1.1 01/29/19 08:28 APTT 33.0 SECONDS (21-34) 01/29/19 08:28
[2019-02-01] MEDS: Tramadol 25 mg PO PRN (19:19)
--- NOTE | 2019-02-02 07:22 | CP.PCM.PN ---
Subjective - Date & Time of Evaluation Date of Evaluation: 02/02/19 Time of Evaluation: : - Subjective Subjective: Feels well overall Wants to go home Tolerated dialysis well yesterday Offers no new complaints Bp stable no CP or SOB ROS- as per HPI, other than that 10 point ROS negative Objective - Vital Signs/Intake and Output Vital Signs (last 24 hours): Temp Pulse Resp BP Pulse Ox 98.3 F 93 H 20 125/83 99 02/01/19 23:45 02/01/19 23:45 02/01/19 23:45 02/01/19 23:45 02/01/19 23:45 - Medications Medications: Current Medications Amlodipine Besylate (Norvasc) 10 mg PO DAILY [facility] Last Admin: 02/01/19 10:00 Dose: Not Given Cephalexin Monohydrate (Keflex) 500 mg PO DAILY [facility]; Protocol Last Admin: 02/01/19 18:19 Dose: 500 mg Cinacalcet (Sensipar) 30 mg PO DAILY [facility] Last Admin: 02/01/19 10:00 Dose: Not Given Diphenhydramine HCl (Benadryl) 25 mg PO Q6 PRN PRN Reason: Itching / Pruritus Epoetin Tolu (Procrit) 10,000 unit IV MWF [facility] Last Admin: 02/01/19 10:01 Dose: 10,000 unit Ferric Sodium Gluconate Complex (Ferrlecit) 125 mg IVPB DAILY [facility] Stop: 02/04/19 14:01 Last Admin: 02/01/19 10:01 Dose: 125 mg Labetalol HCl (Trandate) 100 mg PO DAILY [facility] Last Admin: 02/01/19 10:00 Dose: Not Given Lamivudine (Epivir) 100 mg PO DAILY@1800 [facility]; Protocol Last Admin: 02/01/19 17:24 Dose: 100 mg Sennosides (Senokot Tab) 8.6 mg PO BID PRN PRN Reason: Constipation Last Admin: 01/30/19 22:09 Dose: 8.6 mg Sevelamer Carbonate (Renvela) 0.8 gm PO TIDCC [facility] Last Admin: 02/01/19 17:24 Dose: 0.8 gm Tramadol HCl (Ultram) 25 mg PO Q8 PRN PRN Reason: pain Last Admin: 02/01/19 19:19 Dose: 25 mg - Labs Labs: 01/30/19 10:25 01/30/19 10:25 PT 11.8 SECONDS (9.7-12.2) 01/29/19 08:28 INR 1.1 01/29/19 08:28 APTT 33.0 SECONDS (21-34) 01/29/19 08:28 - Constitutional Appears: Well, Non-toxic - Head Exam Head Exam: ATRAUMATIC, NORMAL INSPECTION - Eye Exam Eye Exam: EOMI, Normal appearance - ENT Exam ENT Exam: Mucous Membranes Moist, Normal Oropharynx - Neck Exam Neck Exam: absent: Lymphadenopathy, Thyromegaly - Respiratory Exam Respiratory Exam: Clear to Ausculation Bilateral. absent: Rales, Rhonchi - Cardiovascular Exam Cardiovascular Exam: REGULAR RHYTHM, +S1, +S2 - GI/Abdominal Exam GI & Abdominal Exam: Soft, Normal Bowel Sounds - Neurological Exam Neurological Exam: Alert, Awake - Skin Skin Exam: Dry, Intact Assessment and Plan (1) Arteriovenous fistula thrombosis Status: Acute (2) ESRD (end stage renal disease) Status: Acute (3) HIV (human immunodeficiency virus infection) Status: Acute (4) Hypertension Status: Acute - Assessment and Plan (Free Text) Assessment: Maintain dialysis schedule Repeat hgb if not discharged Bp stable Continue current care Next dialysis 02/03
[2019-02-02] MEDS: Sevelamer Carb 0.8 gm/Packet PO SCH ×3 (08:25→17:29)
[2019-02-02] MEDS: Ferric Sodium Gluconat Complex 62.5 mg/5 ml Vial IVPB SCH (09:40)
[2019-02-02 16:44] VITALS: BP 109/72; PULSE 90; TEMP 98.5
[2019-02-02] MEDS: LamiVUDine 10 mg/ml Syringe PO SCH (17:29)
--- NOTE | 2019-02-02 21:15 | CP.PCM.DIS ---
Provider - Provider Date of Admission: 01/26/19 14:28 Attending physician: Yeimi Poole MD Consults: 01/24/19 16:30 Physician Consult Stat Comment: Consulting Provider: Michael Ruiz Jr. Consulting Physician: Michael Ruiz Jr. Reason for Consult: eval for fistula no thrill. hand pain 01/24/19 18:44 Nephrology Consult Routine Comment: Consulting Provider: Carlos Nava Consulting Physician: Carlos Nava Reason for Consult: complication vascular access, rf 01/24/19 18:46 Infectious Disease Consult Routine Comment: Consulting Provider: Kenny Bone Consulting Physician: Kenny Bone Reason for Consult: hiv. renal failure Hospital Course - Lab Results Lab Results: Micro Results 01/27/19 20:30 Hand - Left Gram Stain - Final 01/27/19 20:30 Hand - Left Wound Culture - Final Staphylococcus Aureus Most Recent Lab Values WBC 9.5 K/uL (4.8-10.8) 01/30/19 10:25 RBC 2.78 Mil/uL (3.80-5.20) L 01/30/19 10:25 Hgb 7.7 g/dL (11.0-16.0) L 01/30/19 10:25 Hct 23.3 % (34.0-47.0) L 01/30/19 10:25 MCV 83.8 fL (81.0-99.0) 01/30/19 10:25 MCH 27.9 pg (27.0-31.0) 01/30/19 10:25 MCHC 33.3 g/dL (33.0-37.0) 01/30/19 10:25 RDW 14.6 % (11.5-14.5) H 01/30/19 10:25 Plt Count 184 K/uL (130-400) 01/30/19 10:25 MPV 7.9 fL (7.2-11.7) 01/30/19 10:25 Neut % (Auto) 80.7 % (50.0-75.0) H 01/29/19 08:28 Lymph % (Auto) 5.2 % (20.0-40.0) L 01/29/19 08:28 Treasure % (Auto) 10.9 % (0.0-10.0) H 01/29/19 08:28 Eos % (Auto) 2.7 % (0.0-4.0) 01/29/19 08:28 Baso % (Auto) 0.5 % (0.0-2.0) 01/29/19 08:28 Neut # (Auto) 6.2 K/uL (1.8-7.0) 01/29/19 08:28 Lymph # (Auto) 0.4 K/uL (1.0-4.3) L 01/29/19 08:28 Treasure # (Auto) 0.8 K/uL (0.0-0.8) 01/29/19 08:28 Eos # (Auto) 0.2 K/uL (0.0-0.7) 01/29/19 08:28 Baso # (Auto) 0.0 K/uL (0.0-0.2) 01/29/19 08:28 Neutrophils % (Manual) 84 % (50-75) H 01/29/19 08:28 Band Neutrophils % 1 % (0-2) 01/29/19 08:28 Lymphocytes % (Manual) 3 % (20-40) L 01/29/19 08:28 Monocytes % (Manual) 10 % (0-10) 01/29/19 08:28 Eosinophils % (Manual) 2 % (0-4) 01/29/19 08:28 Basophils % (Manual) 1 % (0-2) 01/25/19 07:21 Platelet Estimate Normal (NORMAL) 01/29/19 08:28 Hypochromasia (manual) Slight 01/29/19 08:28 Poikilocytosis (manual Slight 01/25/19 07:21 Anisocytosis (manual) Slight 01/26/19 07:45 PT 11.8 SECONDS (9.7-12.2) 01/29/19 08:28 INR 1.1 01/29/19 08:28 APTT 33.0 SECONDS (21-34) 01/29/19 08:28 Sodium 136 mmol/L (132-148) 01/30/19 10:25 Potassium 3.6 mmol/L (3.6-5.2) 01/30/19 10:25 Chloride 98 mmol/L (98-107) 01/30/19 10:25 Carbon Dioxide 26 mmol/L (22-30) 01/30/19 10:25 Anion Gap 16 (10-20) 01/30/19 10:25 BUN 44 mg/dL (7-17) H 01/30/19 10:25 Creatinine 6.3 mg/dL (0.7-1.2) H 01/30/19 10:25 Est GFR ( Amer) 8 01/30/19 10:25 Est GFR (Non-Af Amer) 7 01/30/19 10:25 Random Glucose 124 mg/dL (65-105) H D 01/30/19 10:25 Calcium 10.0 mg/dl (8.6-10.4) 01/30/19 10:25 Phosphorus 4.9 mg/dL (2.5-4.5) H 01/30/19 10:25 Magnesium 2.1 mg/dL (1.6-2.3) 01/29/19 08:28 % Saturation 11 (20-55) L 01/25/19 17:34 Ferritin 74.6 ng/mL 01/25/19 17:34 Total Bilirubin 0.6 mg/dL (0.2-1.3) 01/30/19 10:25 AST 27 U/L (14-36) 01/30/19 10:25 ALT 18 U/L (9-52) 01/30/19 10:25 Alkaline Phosphatase 99 U/L (38-126) 01/30/19 10:25 Total Protein 6.6 g/dL (6.3-8.3) 01/30/19 10:25 Albumin 3.7 g/dL (3.5-5.0) 01/30/19 10:25 Globulin 2.9 gm/dL (2.2-3.9) 01/30/19 10:25 Albumin/Globulin Ratio 1.3 (1.0-2.1) 01/30/19 10:25 Beta HCG, Quant 2.60 mIU/ML 01/28/19 07: PTH Intact Whole Molec 237 pg/mL (14-64) H 01/28/19 07:19 Hep Bs Antigen Negative (NEGATIVE) 01/25/19 17:34 Hep Bs Antibody Positive (NEGATIVE) 01/25/19 17:34 Hep B Core IgM Ab Negative (NEGATIVE) 01/25/19 17:34 Hepatitis C Antibody Negative (NEGATIVE) 01/25/19 17:34 Blood Type A POSITIVE 01/29/19 08:28 Antibody Screen Negative 01/29/19 08:28 Discharge Exam - Head Exam Head Exam: ATRAUMATIC, NORMAL INSPECTION Discharge Plan - Discharge Medications Prescriptions: Cephalexin [Keflex] 500 mg PO DAILY #7 cap traMADol [Ultram] 25 mg PO Q12 #6 tab - Follow Up Plan Condition: GOOD Disposition: HOME/ ROUTINE Instructions: Dialysis Diet , Hemodialysis (DC), Arteriovenous Fistula for Dialysis (DC), Cephalexin, Tramadol, Dialysis Catheter (DC) Additional Instructions: Follow up with renal and HD in am Referrals: Kenny Bone MD [Staff Provider] -
== END 2019-02-02 18:23 | disposition home or self-care (01) | DRG 264 ==
LOC: C.ER 15:53 → C.9E 18:43 → C.3T 18:57 → OBSVTOIN 01-26 14:28 → C.6T 01-26 14:46
PROVIDERS: ADMIT Internal Medicine; ATTEND Internal Medicine
PROC: B244YZZ Ultrasonography of Right Heart using Other Contrast (ICD-10-PCS; 2019-01-25)
PROC: 02H633Z Insertion of Infusion Device into Right Atrium, Percutaneous Approach (ICD-10-PCS; principal; 2019-01-25 16:00)
PROC: 5A1D70Z Performance of Urinary Filtration, Intermittent, Less than 6 Hours Per Day (ICD-10-PCS; 2019-01-28)
PROC: 03180KD Bypass Left Brachial Artery to Upper Arm Vein with Nonautologous Tissue Substitute, Open Approach (ICD-10-PCS; 2019-01-29)
PROC: 5A1D70Z Performance of Urinary Filtration, Intermittent, Less than 6 Hours Per Day (ICD-10-PCS; 2019-01-30)
PROC: 5A1D70Z Performance of Urinary Filtration, Intermittent, Less than 6 Hours Per Day (ICD-10-PCS; 2019-02-01)
DX: T82.868A Thrombosis due to vascular prosthetic devices, implants and grafts, initial encounter (principal); N18.6 End stage renal disease; I12.0 Hypertensive chronic kidney disease with stage 5 chronic kidney disease or end stage renal disease; N25.81 Secondary hyperparathyroidism of renal origin; I69.254 Hemiplegia and hemiparesis following other nontraumatic intracranial hemorrhage affecting left non-dominant side; Z86.11 Personal history of tuberculosis; Z99.2 Dependence on renal dialysis; E78.00 Pure hypercholesterolemia, unspecified; D63.8 Anemia in other chronic diseases classified elsewhere

== ENCOUNTER 2019-02-08 12:14 | Emergency (ER) | payer MEDICARE ==
[2019-02-08 12:15] VITALS: BMI 28.6
[2019-02-08 12:44] VITALS: RESP 20; O2SAT 100
--- NOTE | 2019-02-08 13:39 | C.PDOC ---
Time Seen by Provider: 02/08/19 13:07 Chief Complaint (Nursing): Back Pain Past Medical History Vital Signs: Last Vital Signs Temp 98.9 F 02/08/19 12:38 Pulse 86 02/08/19 12:38 Resp 20 02/08/19 12:38 BP 133/82 02/08/19 12:38 Pulse Ox 100 02/08/19 12:38 Primary Care Provider: Kenny Bone - Medical History PMH: Anemia, HIV, HTN, Kidney Stones, Peripheral Edema, End Stage Renal Disease, Chronic Kidney Disease Surgical History: Endoscopy - [facility] Procedures (01/26/19) ANT NASAL PACK FOR EPIST (09/20/13) BYPASS L BRACH ART TO UP ARM VEIN W NONAUT SUB, OPEN (01/26/19) CAUTERY TO STOP EPISTAX (09/21/13) INSERTION OF INFUSION DEVICE INTO R ATRIUM, PERC APPROACH (01/26/19) PRESSURE DRESSING APPLIC (11/22/13) ULTRASONOGRAPHY OF RIGHT HEART USING OTHER CONTRAST (01/26/19) - Social History Hx Tobacco Use: No Hx Alcohol Use: No Hx Substance Use: No - Immunization History Hx Tetanus Toxoid Vaccination: No Hx Influenza Vaccination: Yes Hx Pneumococcal Vaccination: No ED Course And Treatment O2 Sat by Pulse Oximetry: 100 Disposition - Disposition
--- NOTE | 2019-02-08 15:08 | C.PDOC ---
History Of Present Illness The patient is a 58-year-old female, whose PMHx includes ESRD and is on dialysis . Patient was recently admitted to the hospital for thrombosis of her left AV fistula. Patient underwent surgery by Dr. Ruiz 10 days ago and was discharged from the hospital 5 days ago. While at home, patient states that she developed onset of sharp left arm pain and numbness. She states her arm was feeling more cool to touch than usual. She denies any trauma/injuries, fever, chills, bleeding, or weakness to the area. Time Seen by Provider: 02/08/19 13:07 Chief Complaint (Nursing): Back Pain History Per: Patient History/Exam Limitations: no limitations Onset/Duration Of Symptoms: Days Current Symptoms Are (Timing): Still Present Past Medical History Reviewed: Historical Data, Nursing Documentation, Vital Signs Vital Signs: Last Vital Signs Temp 98.9 F 02/08/19 12:38 Pulse 86 02/08/19 12:38 Resp 20 02/08/19 12:38 BP 133/82 02/08/19 12:38 Pulse Ox 100 02/08/19 13:49 Primary Care Provider: Kenny Bone - Medical History PMH: Anemia, HIV, HTN, Kidney Stones, Peripheral Edema, End Stage Renal Disease, Chronic Kidney Disease Surgical History: Endoscopy - [facility] Procedures (01/26/19) ANT NASAL PACK FOR EPIST (09/20/13) BYPASS L BRACH ART TO UP ARM VEIN W NONAUT SUB, OPEN (01/26/19) CAUTERY TO STOP EPISTAX (09/21/13) INSERTION OF INFUSION DEVICE INTO R ATRIUM, PERC APPROACH (01/26/19) PRESSURE DRESSING APPLIC (11/22/13) ULTRASONOGRAPHY OF RIGHT HEART USING OTHER CONTRAST (01/26/19) Family History: States: Unknown Family Hx - Social History Hx Tobacco Use: No Hx Alcohol Use: No Hx Substance Use: No - Immunization History Hx Tetanus Toxoid Vaccination: No Hx Influenza Vaccination: Yes Hx Pneumococcal Vaccination: No Review Of Systems Musculoskeletal: Positive for: Arm Pain (left) Physical Exam - Physical Exam Appears: Non-toxic, No Acute Distress, Chronically Ill Skin: Normal Color, Warm, Dry Head: Atraumatic, Normacephalic Eye(s): bilateral: Normal Inspection Oral Mucosa: Moist Neck: Supple Chest: Symmetrical, No Deformity, No Tenderness Cardiovascular: Rhythm Regular, No Murmur Respiratory: Normal Breath Sounds, No Rales, No Rhonchi, No Wheezing Gastrointestinal/Abdominal: Soft, No Tenderness, No Guarding, No Rebound Back: Paraspinal Tenderness (slight, thoracic ) Extremity: Normal ROM (bilateral upper extremities ), No Tenderness, Capillary Refill (less than 2 seconds ), No Deformity, No Swelling, Other (AV fistula in left upper extremity with (+) thrill ) Extremity: Bilateral: Normal Color And Temperature Pulses: Left Radial: Decreased (1+), Right Radial: Normal Neurological/Psych: Oriented x3, Normal Speech, Normal Cognition, Normal Motor, Normal Sensation ED Course And Treatment ECG: Interpreted By Me, Viewed By Me ECG Rhythm: Sinus Rhythm Interpretation Of ECG: Normal Sinus Rhythm at rate 92bpm. Normal ST/T waves. Rate From EC O2 Sat by Pulse Oximetry: 100 (on RA ) Pulse Ox Interpretation: Normal Medical Decision Making Medical Decision Making: Progress: Case was discussed with Dr. Ruiz, who evaluated the patient at bedside. Dr. Ruiz states that patient was diagnosed with steal syndrome and her exam today is her usual baseline. He states that there is no need for further diagnostic testing, as patient is b ng treated outpatient. Patient will be going to dialysis today after discharge. Disposition - Disposition Referrals: Michael Ruiz Jr., MD [Staff Provider] - Disposition: HOME/ ROUTINE Disposition Time: 15:08 Condition: GOOD Additional Instructions: Follow up with the Dr. Ruiz within 2-3 days. GO straight to dialysis. return if worsened. Instructions: Radiculopathy (DC) Forms: [employer] (Macedonian) - Clinical Impression Clinical Impression: Complication of vascular access for dialysis, Radiculopathy - PA / MACHINE PLUG SHAPER / Resident Statement MD/DO has reviewed & agrees with the documentation as recorded. - Scribe Statement The provider has reviewed the documentation as recorded by the Scribe (Rowena Roland) All medical record entries made by the Scribe were at my direction and personally dictated by me. I have reviewed the chart and agree that the record accurately reflects my personal performance of the history, physical exam, medical decision making, and the department course for this patient. I have also personally directed, reviewed, and agree with the discharge instructions and disposition.
[2019-02-08 15:16] VITALS: BP 145/84; PULSE 80; TEMP 98.4
== END 2019-02-08 15:35 | disposition home or self-care (01) ==
LOC: C.ER 12:14
DX: T82.9XXA Unspecified complication of cardiac and vascular prosthetic device, implant and graft, initial encounter (principal); I12.0 Hypertensive chronic kidney disease with stage 5 chronic kidney disease or end stage renal disease; N18.6 End stage renal disease; Z99.2 Dependence on renal dialysis